=== PATIENT | male | born 1950 | race Caucasian/White ===

== ENCOUNTER 2021-04-08 07:17 | Outpatient (CLI) | payer OTHER, SELFPAY ==
[2021-04-08 07:49] LABS: Alanine Aminotransferase 15 U/L (4-50); Albumin Level 4.3 g/dL (3.5-5.1); Alkaline Phosphatase 70 U/L (38-126); Anion Gap 7 mmol/L (8-16); Aspartate Amino Transferase 29 U/L (17-59); Bilirubin,Total 1.3 mg/dL (0.2-1.3); Blood Urea Nitrogen 15 mg/dL (9-20); Calcium 9.9 mg/dL (8.4-10.2); Carbon Dioxide 27 mmol/L (22-30); Chloride 104 mmol/L (98-107); Cholesterol 186 mg/dL (0-200); Estimated Glomerular Filt Rate 50; Glucose 105 mg/dL (75-110); HDL Direct 58 mg/dL; Potassium 4.4 mmol/L (3.4-5.0); Sodium 138 mmol/L (137-145); Triglycerides 100 mg/dL (<150)
[2021-04-08 07:58] LABS: Basophils Absolute Auto 0.1 K/mm3 (0.0-0.1); Eosinophils Absolute Auto 0.3 K/mm3 (0-0.3); Eosinophils Percent Auto 5.1 % (0-4.4); Hematocrit 43.9 % (42.0-52.0); Hemoglobin 14.5 g/dL (14.0-18.0); Immature Granulocyte Absolute 0.02 K/mm3 (0.00-0.031); Immature Granulocyte Percent A 0.3 % (0-0.5); Lymphocytes Absolute Auto 1.58 K/mm3 (0.9-3.2); Lymphocytes Percent Auto 26.2 % (18.3-44.2); Mean Corpuscular Hemoglobin 30.8 pg (26-34); Mean Corpuscular Volume 93.2 fl (80-100); Mean Platelet Volume 8.7 fl (7.4-10.4); Monocytes Absolute Auto 0.8 K/mm3 (0.1-0.6); Monocytes Percent Auto 12.6 % (2.6-8.5); Neutrophils Absolute Auto 3.3 K/mm3 (1.3-6.7); Neutrophils Percent Auto 54.8 % (45.5-73.1); Platelet Count Result 264 k/mm3 (150-375); Red Blood Count 4.71 M/mm3 (4.6-6.20); Red Cell Distribution Width 13.5 % (11.5-14.5)
[2021-04-08 08:00] LABS: LDL Cholesterol Direct 87 mg/dL
== END 2021-04-08 07:18 | disposition home or self-care (01) ==
PROVIDERS: PCP Internal Medicine; Visit Provider Nurse Practitioner
DX: I10 Essential (primary) hypertension (principal); E78.1 Pure hyperglyceridemia
CPT/HCPCS: 36415; 80053; 80061; 85025

== ENCOUNTER 2021-06-09 08:47 | Outpatient (CLI) | payer OTHER, SELFPAY ==
[2021-06-09 09:33] LABS: Anion Gap 7 mmol/L (8-16); Blood Urea Nitrogen 15 mg/dL (9-20); Calcium 9.6 mg/dL (8.4-10.2); Carbon Dioxide 30 mmol/L (22-30); Chloride 94 mmol/L (98-107); Estimated Glomerular Filt Rate 54; Glucose 96 mg/dL (65-110); Potassium 4.5 mmol/L (3.4-5.0); Sodium 131 mmol/L (137-145)
== END 2021-06-09 08:48 | disposition home or self-care (01) ==
PROVIDERS: PCP Internal Medicine; Visit Provider Internal Medicine Cardiovascular Disease
DX: N28.9 Disorder of kidney and ureter, unspecified (principal)
CPT/HCPCS: 36415; 80048

== ENCOUNTER 2021-10-21 13:06 | Outpatient (CLI) | payer OTHER, SELFPAY ==
[2021-10-21 13:54] LABS: Anion Gap 8 mmol/L (8-16); Blood Urea Nitrogen 18 mg/dL (9-20); Calcium 9.2 mg/dL (8.4-10.2); Carbon Dioxide 30 mmol/L (22-30); Chloride 98 mmol/L (98-107); Estimated Glomerular Filt Rate 50; Glucose 124 mg/dL (65-110); Potassium 4.2 mmol/L (3.4-5.0); Sodium 136 mmol/L (137-145)
== END 2021-10-21 13:07 | disposition home or self-care (01) ==
LOC: ANHLAB 13:08
PROVIDERS: PCP Internal Medicine; Visit Provider Nurse Practitioner
DX: R94.4 Abnormal results of kidney function studies (principal)
CPT/HCPCS: 36415; 80048

== ENCOUNTER 2022-04-22 07:39 | Outpatient (CLI) | payer OTHER, SELFPAY ==
[2022-04-22 08:15] LABS: Basophils Percent Auto 0.6 % (0.2-1.2); Eosinophils Absolute Auto 0.1 K/mm3 (0-0.3); Eosinophils Percent Auto 2.4 % (0-4.4); Hematocrit 41.4 % (42.0-52.0); Hemoglobin 13.6 g/dL (14.0-18.0); Immature Granulocyte Absolute 0.03 K/mm3 (0.00-0.031); Immature Granulocyte Percent A 0.6 % (0-0.5); Lymphocytes Percent Auto 27.8 % (18.3-44.2); Mean Corpuscular HGB Conc 32.9 g/dl (32-36); Mean Corpuscular Hemoglobin 31.1 pg (26-34); Mean Corpuscular Volume 94.5 fl (80-100); Mean Platelet Volume 8.4 fl (7.4-10.4); Monocytes Absolute Auto 0.7 K/mm3 (0.1-0.6); Monocytes Percent Auto 12.8 % (2.6-8.5); Neutrophils Percent Auto 55.8 % (45.5-73.1); Platelet Count Result 232 k/mm3 (150-375); Red Blood Count 4.38 M/mm3 (4.6-6.20); White Blood Count 5.4 K/mm3 (4.5-10.0)
[2022-04-22 08:26] LABS: Alanine Aminotransferase 15 U/L (6-50); Albumin Level 4.1 g/dL (3.5-5.1); Alkaline Phosphatase 59 U/L (38-126); Anion Gap 8 mmol/L (8-16); Aspartate Amino Transferase 19 U/L (17-59); Bilirubin,Total 0.6 mg/dL (0.2-1.3); Blood Urea Nitrogen 17 mg/dL (9-20); Carbon Dioxide 25 mmol/L (22-30); Chloride 102 mmol/L (98-107); Cholesterol 170 mg/dL (0-200); Estimated Glomerular Filt Rate 60; Glucose 100 mg/dL (65-110); HDL Direct 50 mg/dL; Potassium 4.2 mmol/L (3.4-5.0); Sodium 135 mmol/L (137-145); Triglycerides 111 mg/dL (<150)
[2022-04-22 08:37] LABS: LDL Cholesterol Direct 81 mg/dL
[2022-04-22 08:57] LABS: Prostate Specific Antigen 0.2 ng/mL (< OR = 4.0)
== END 2022-04-22 07:40 | disposition home or self-care (01) ==
LOC: ANHLAB 07:40
PROVIDERS: PCP Internal Medicine; Visit Provider Nurse Practitioner
DX: Z12.5 Encounter for screening for malignant neoplasm of prostate (principal); Z13.220 Encounter for screening for lipoid disorders; Z13.29 Encounter for screening for other suspected endocrine disorder
CPT/HCPCS: 36415; 80053; 80061; 84153; 85025; G0103

== ENCOUNTER 2022-06-15 09:02 | Outpatient (CLI) | payer OTHER, SELFPAY ==
[2022-06-15 10:05] LABS: Alanine Aminotransferase 19 U/L (6-50); Albumin Level 4.4 g/dL (3.5-5.1); Alkaline Phosphatase 62 U/L (38-126); Anion Gap 8 mmol/L (8-16); Aspartate Amino Transferase 29 U/L (17-59); Bilirubin,Total 0.8 mg/dL (0.2-1.3); Blood Urea Nitrogen 18 mg/dL (9-20); Calcium 9.8 mg/dL (8.4-10.2); Carbon Dioxide 31 mmol/L (22-30); Chloride 94 mmol/L (98-107); Estimated Glomerular Filt Rate 60; Glucose 79 mg/dL (65-110); Potassium 4.4 mmol/L (3.4-5.0); Sodium 133 mmol/L (137-145)
== END 2022-06-15 09:03 | disposition home or self-care (01) ==
PROVIDERS: PCP Internal Medicine; Visit Provider Internal Medicine Cardiovascular Disease
DX: I42.8 Other cardiomyopathies (principal)
CPT/HCPCS: 36415; 80053

== ENCOUNTER 2022-07-23 08:21 | Outpatient (CLI) | payer OTHER, SELFPAY ==
[2022-07-23 08:47] LABS: Basophils Percent Auto 0.7 % (0.2-1.2); Eosinophils Absolute Auto 0.1 K/mm3 (0-0.3); Eosinophils Percent Auto 2.6 % (0-4.4); Hematocrit 44.1 % (42.0-52.0); Hemoglobin 14.9 g/dL (14.0-18.0); Immature Granulocyte Absolute 0.02 K/mm3 (0.00-0.031); Immature Granulocyte Percent A 0.4 % (0-0.5); Lymphocytes Absolute Auto 1.47 K/mm3 (0.9-3.2); Lymphocytes Percent Auto 27.1 % (18.3-44.2); Mean Corpuscular HGB Conc 33.8 g/dl (32-36); Mean Corpuscular Hemoglobin 31.8 pg (26-34); Mean Platelet Volume 8.3 fl (7.4-10.4); Monocytes Absolute Auto 0.6 K/mm3 (0.1-0.6); Monocytes Percent Auto 11.4 % (2.6-8.5); Neutrophils Absolute Auto 3.1 K/mm3 (1.3-6.7); Neutrophils Percent Auto 57.8 % (45.5-73.1); Platelet Count Result 245 k/mm3 (150-375); Red Blood Count 4.69 M/mm3 (4.6-6.20); Red Cell Distribution Width 13.7 % (11.5-14.5); White Blood Count 5.4 K/mm3 (4.5-10.0)
[2022-07-23 09:49] LABS: Iron 123 ug/dL (49-181)
[2022-07-23 09:58] LABS: Percent Iron Saturation 39 % (20-50)
[2022-07-23 10:07] LABS: Folic Acid 12.3 ng/mL (2.76->20)
== END 2022-07-23 08:22 | disposition home or self-care (01) ==
LOC: ANHLAB 08:22
PROVIDERS: PCP Internal Medicine; Visit Provider Nurse Practitioner
DX: D64.9 Anemia, unspecified (principal)
CPT/HCPCS: 36415; 82607; 82728; 82746; 83540; 83550; 85025

== ENCOUNTER 2023-04-22 08:58 | Outpatient (CLI) | payer OTHER, SELFPAY ==
[2023-04-22 09:23] LABS: Basophils Percent Auto 0.8 % (0.2-1.2); Eosinophils Absolute Auto 0.1 K/mm3 (0-0.3); Eosinophils Percent Auto 2.4 % (0-4.4); Hematocrit 43.4 % (42.0-52.0); Hemoglobin 14.5 g/dL (14.0-18.0); Immature Granulocyte Absolute 0.01 K/mm3 (0.00-0.031); Immature Granulocyte Percent A 0.2 % (0-0.5); Lymphocytes Percent Auto 32.3 % (18.3-44.2); Mean Corpuscular HGB Conc 33.4 g/dl (32-36); Mean Corpuscular Hemoglobin 31.3 pg (26-34); Mean Corpuscular Volume 93.5 fl (80-100); Mean Platelet Volume 8.6 fl (7.4-10.4); Monocytes Absolute Auto 0.7 K/mm3 (0.1-0.6); Monocytes Percent Auto 13.9 % (2.6-8.5); Neutrophils Absolute Auto 2.5 K/mm3 (1.3-6.7); Neutrophils Percent Auto 50.4 % (45.5-73.1); Platelet Count Result 223 k/mm3 (150-375); Red Blood Count 4.64 M/mm3 (4.6-6.20); Red Cell Distribution Width 13.9 % (11.5-14.5)
[2023-04-22 09:26] LABS: Alanine Aminotransferase 19 U/L (6-50); Albumin Level 4.2 g/dL (3.5-5.1); Alkaline Phosphatase 62 U/L (38-126); Anion Gap 5 mmol/L (8-16); Aspartate Amino Transferase 28 U/L (17-59); Bilirubin,Total 1.2 mg/dL (0.2-1.3); Blood Urea Nitrogen 22 mg/dL (9-20); Carbon Dioxide 27 mmol/L (22-30); Chloride 103 mmol/L (98-107); Cholesterol 183 mg/dL (0-200); Estimated Glomerular Filt Rate 54; Glucose 92 mg/dL (65-110); HDL Direct 56 mg/dL; Potassium 4.3 mmol/L (3.4-5.0); Sodium 135 mmol/L (137-145); Triglycerides 63 mg/dL (<150)
[2023-04-22 09:37] LABS: LDL Cholesterol Direct 101 mg/dL
[2023-04-22 09:55] LABS: Prostate Specific Antigen 0.2 ng/mL (< OR = 4.0)
== END 2023-04-22 08:59 | disposition home or self-care (01) ==
LOC: ANHLAB 08:59
PROVIDERS: PCP Internal Medicine; Visit Provider Nurse Practitioner
DX: Z12.5 Encounter for screening for malignant neoplasm of prostate (principal); Z13.220 Encounter for screening for lipoid disorders; Z13.29 Encounter for screening for other suspected endocrine disorder
CPT/HCPCS: 36415; 80053; 80061; 84153; 85025; G0103

== ENCOUNTER 2024-05-04 07:03 | Outpatient (CLI) | payer OTHER, SELFPAY ==
[2024-05-04 07:30] LABS: Alanine Aminotransferase 17 U/L (6-50); Albumin Level 4.7 g/dL (3.5-5.1); Alkaline Phosphatase 63 U/L (38-126); Anion Gap 10 mmol/L (4-12); Aspartate Amino Transferase 24 U/L (17-59); Basophils Absolute Auto 0.1 K/mm3 (0.0-0.1); Basophils Percent Auto 1.1 % (0.2-1.2); Bilirubin,Total 1.2 mg/dL (0.2-1.3); Blood Urea Nitrogen 19 mg/dL (9-20); Calcium 9.5 mg/dL (8.4-10.2); Carbon Dioxide 26 mmol/L (22-30); Chloride 100 mmol/L (98-107); Cholesterol 187 mg/dL (0-200); Eosinophils Absolute Auto 0.2 K/mm3 (0-0.3); Eosinophils Percent Auto 3.6 % (0-4.4); Estimated Glomerular Filt Rate > 60; Glucose 99 mg/dL (65-110); HDL Direct 62 mg/dL; Hemoglobin 14.3 g/dL (14.0-18.0); Immature Granulocyte Absolute 0.01 K/mm3 (0.00-0.031); Immature Granulocyte Percent A 0.2 % (0-0.5); Lymphocytes Percent Auto 38.2 % (18.3-44.2); Mean Corpuscular HGB Conc 33.3 g/dl (32-36); Mean Corpuscular Hemoglobin 31.5 pg (26-34); Mean Corpuscular Volume 94.7 fl (80-100); Mean Platelet Volume 8.1 fl (7.4-10.4); Monocytes Absolute Auto 0.7 K/mm3 (0.1-0.6); Monocytes Percent Auto 14.6 % (2.6-8.5); Neutrophils Absolute Auto 1.9 K/mm3 (1.3-6.7); Neutrophils Percent Auto 42.3 % (45.5-73.1); Platelet Count Result 237 k/mm3 (150-375); Potassium 4.2 mmol/L (3.4-5.0); Red Blood Count 4.54 M/mm3 (4.6-6.20); Red Cell Distribution Width 14.2 % (11.5-14.5); Sodium 136 mmol/L (137-145); Triglycerides 86 mg/dL (<150); White Blood Count 4.5 K/mm3 (4.5-10.0)
[2024-05-04 07:40] LABS: LDL Cholesterol Direct 105 mg/dL
[2024-05-04 07:57] LABS: Prostate Specific Antigen 0.2 ng/mL (< OR = 4.0)
== END 2024-05-04 07:04 | disposition home or self-care (01) ==
LOC: ANHLAB 07:04
PROVIDERS: PCP Internal Medicine; Visit Provider Nurse Practitioner
DX: Z13.220 Encounter for screening for lipoid disorders (principal); Z13.29 Encounter for screening for other suspected endocrine disorder; Z12.5 Encounter for screening for malignant neoplasm of prostate
CPT/HCPCS: 36415; 80053; 80061; 84153; 85025; G0103

== ENCOUNTER 2025-04-30 06:28 | Emergency (ER) | payer OTHER, SELFPAY ==
[2025-04-30] VITALS (7 sets, daily range): BP systolic 86–118; BP diastolic 53–74; PULSE 77–87; RESP 15–24; TEMP 36.4–36.6; O2SAT 99–100
--- NOTE | ~2025-04-30 | XR_ITS ---
Clinical Indication: Shortness of breath PA and lateral views of the chest: Comparison: 02/06/2017 Findings: Possible COPD with stable calcified left basilar granuloma. The lungs are otherwise clear, without evidence of focal consolidation or pleural effusion. Calcified left hilar lymph nodes are aga in present. Cardiomediastinal silhouette is within normal limits. Bones and soft tissues are unremark able. Impression: Possible COPD. No other acute abnormality seen. Reviewed, dictated and finalized at location M. Impression: Possible COPD. No other acute abnormality seen.
--- OUTSIDE RECORDS SUMMARY | 2025-04-30 06:30 | XMS_ITS | Encounter Summary ---
Author Organization [facility] Healthcare Address [address] [place] [address] Care Team Providers Care Professor Of Astronomy Name Role Phone Jorge Agustin DO Primary Care Provider [phone] Ricardo Clarke DO Unavailable [phone] Iban Armenta MD Unavailable [phone] Encounter Details Date Type Department Care Team (Late st Contact Info) Description 04/22/2025 Results Follow-Up [facility] Convenient Care at [address] [address] Britta Johnston, PIZZAMAKER [address] [place] [address] [address] [place] [address] XR Shoulder Left 2+ Vw Social History Tobacco Use Types Packs/Day Years Used Date Smoking Tobacco: Former Cigarettes Q uit: 03/20/2004 Smokeless Tobacco: Never Comments:Smoking History Pac ks/day: 1.5 Packs Alcohol Use Standard Drinks/Week Comments Yes 0 (1 standard drink = 0.6 oz pur e alcohol) AUDIT-C Answer Date Recorded Q1: How often do you have a drink containing alcohol? Never 03/25/2025 Q2: How many drinks containi ng alcohol do you have on a typical day when you are drinking? Patient does not drink Q3: How often do you have si x or more drinks on one occasion? Never 03/25/2025 Personal Safety Answer Date Recorded Have you ever been in or are you currently in a harmful physical or emotional relationship or is someone making you feel afraid or unsafe? 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 * Result Encounter Note - Makeda Collier MA - 04/25/2025 12:20 PM CDT Lvm for call back regarding results. documented in this encounter Plan of Treatment Not on file documented as of this encounter Visit Diagnoses Not on filedocumented in this encounter Care Teams Professor Of Astronomy Relationship Specialty Start Date End Date Jorge Agustin DO PCP - General Internal Medicine 06/08/17 Ricardo Clarke DO Consulting Physician Gastroenterology 08/27/19 Iban Armenta MD [address] [place] [address] [place] [address] Surgeon Orthopedic Surgery 04/01/25 documented as of this encounter
--- OUTSIDE RECORDS SUMMARY | 2025-04-30 06:30 | XMS_ITS | Encounter Summary ---
Author Organization [facility] Address [address] [facility] [address] [place] [address] Care Team Providers Care Channel Marketing Coordinator Name Role Phone Prasad Bose MD Primary Care Provider [phone] Jorge Agustin DO Primary Care Provider [phone] Ricardo Clarke DO Unavailable [phone] Iban Armenta MD Unavailable [phone] Encounter Details Date Type Department Care Team (Late st Contact Info) Description 01/27/2017 Orders Only [facility] ProviderCasi MD [address] [place] [address] Social History Tobacco Use Types Packs/Day Years Used Date Smoking Tobacco: Never Assessed Sex and Gender Information Value Date Recorded Sex Assigned at Not on file 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 Historical Provider [facility] Final Result documented in this encounter Visit Diagnoses Not on filedocumented in this encounter Additional Health Concerns Infection Onset Date Last Indicated Resolved Time COVID: Suspected 01/05/2023 01/05/2023 01/05/2023 8:38 AM CDT COVID: Suspected 06/24/2023 06/24/2023 06/25/2023 1:10 AM CDT COVID19 06/24/2023 06/24/2023 07/04/2023 3:06 AM CDT COVID: Recovered Comment:Added based on recent COVID infection. 07/04/2023 08/17/2023 10/02/2023 3:[address] documented as of this encounter Care Teams Channel Marketing Coordinator Relationship Specialty Start Date End Date Prasad Bose MD PCP - General 01/24/17 06/07/17 Jorge Agustin DO PCP - General Internal Medicine 06/08/17 Ricardo Clarke DO Consulting Physician Gastroenterology 08/27/19 Iban Armenta MD [address] [facility] [address] [place] [id number] Surgeon Orthopedic Surgery 04/01/25 documented as of this encounter
--- OUTSIDE RECORDS SUMMARY | 2025-04-30 06:30 | XMS_ITS | Encounter Summary ---
Author Organization [facility] Healthcare Address [address] [place] [address] Care Team Providers Care Coverer Name Role Phone Jorge Augstin DO Primary Care Provider [phone] Ricardo Clarke DO Unavailable [phone] Iban Armenta MD Unavailable [phone] Reason for Visit * Reason Comments Pain Encounter Details Date Type Department Care Team (Late st Contact Info) Description 04/29/2025 1:30 PM CDT Office Visit [facility] Medical [facility] Orthopedic and Sports Medicine [address] [place] [id number] Olya Winkler PA [address] [place] [address] [address] [place] [address] Acute pain of left shoulder (Primary Dx) Social History Tobacco Use Types Packs/Day Years [...] on file 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 Gender Identity Not on file Sexual Orientation Not on file documented as of this encounter Last Filed Vital Signs Vital Sign Reading Time Taken Comments Blood Pressure 105/70 04/29/2025 1:24 PM CDT Pulse 80 04/29/2025 1:24 PM CDT Temperature - - Respiratory Rate - - Oxygen Saturation - - Inhaled Oxygen Concentration - - Weight 61.2 kg (135 lb) 04/29/2025 1:24 PM CDT Height 177.8 cm (5' 10) 04/29/2025 1:24 PM CDT Body Mass Index 19.37 04/29/2025 1:24 PM CDT documented in this encounter Plan of Treatment Not on file documented as of this encounter Visit Diagnoses Diagnosis Acute pain of left shoulder- Primary documented in this encounter Care Teams Coverer Relationship Specialty Start Date End Date Jorge Agustin DO PCP - General Internal Medicine 06/08/17 Ricardo Clarke DO Consulting Physician Gastroenterology 08/27/19 Iban Armenta MD [address] [facility] [address] [place] [address] Surgeon Orthopedic Surgery 04/01/25 documented as of this encounter
--- OUTSIDE RECORDS SUMMARY | 2025-04-30 06:30 | XMS_ITS | Clinical Summary ---
Author Organization [facility] [address] Address [address] [place] [address] Care Team Providers Care Joss House Keeper Name Role Phone Jorge Agustin DO Primary Care Provider [phone] Ricardo Clarke DO Unavailable [phone] Iban Armenta MD Unavailable [phone] Allergies No known active allergies Medications sildenafiL (VIAGRA) 25 mg tablet Take 1 tablet (25 mg total) by mouth daily as needed for erectile dysfunction Active Xarelto 20 mg tablet TAKE 1 TABLET(20 MG) BY MOUTH DAILY 90 tablet 6 025 Active flecainide (TAMBOCOR) 100 mg tablet Take 1 tablet (100 mg total) by mouth 2 (two) times a day 180 tablet 2 025 Active losartan (COZAAR) 100 mg tabletIndications :Essential hypertension TAKE 1 TABLET(100 MG) BY MOUTH DAILY 90 tablet 3 025 Active ascorbic acid (VITAMIN C) 500 mg tablet,chewableIn dications:Vitamin deficiency prevention Take 1 tablet/chew tab (500 mg total) by mouth daily 30 tablet/chew tab 025 2024 Active ferrous sulfate 325 mg (65 mg of elemental iron) tabletIndications :Iron Deficiency Anemia,Anemia prevention Take 1 tablet (325 mg total) by mouth daily with breakfast 30 tablet 025 2025 Active Additional Information Patient not taking.Reported on 04/22/2025 ondansetron ODT (ZOFRAN-ODT) 4 mg disintegrating tabletIndications :nausea and vomiting Take 1 tablet (4 mg total) by mouth every 6 (six) hours as needed for nausea or vomiting 20 tablet 2 Active Additional Information Patient not taking.Reported on 04/22/2025 senna-docusate (PERICOLACE) 8.6-50 mgIndications:con stipation Take 2 tablets by mouth 2 (two) times a day 60 tablet 2 Active traMADoL (ULTRAM) 50 mg tablet Take 1 tablet (50 mg total) by mouth every 6 (six) hours as needed for pain Take 1-2 tablets every 4-6 hours as needed for pain. 30 tablet Active amLODIPine (NORVASC) 10 mg tablet Take 0.5 tablets (5 mg total) by mouth daily 025 2025 Active carvediloL (COREG) 6.25 mg tablet TAKE 1 TABLET(6.25 MG) BY MOUTH TWICE DAILY WITH MEALS 180 tablet 3 Active carvediloL (COREG) 6.25 mg tablet Take 1 tablet (6.25 mg total) by mouth 2 (two) times a day with meals 180 tablet 025 2024 Discontinued amLODIPine (NORVASC) 10 mg tablet Take 1 tablet (10 mg total) by mouth daily 30 tablet 11 025 2024 Discontinued acetaminophen (TYLENOL) 500 mg tablet Take 1 tablet (500 mg total) by mouth every 6 (six) hours as needed for pain 2024 Discontinued(S top Taking at Discharge) oxyCODONE-acetami nophen (PERCOCET) 5-325 mg per tabletIndications :Pain Take 1-2 tablets by mouth every 4 (four) hours as needed for pain 40 tablet 025 2024 Discontinued(A lternate therapy) traMADoL (ULTRAM) 50 mg tablet Take 1 tablet (50 mg total) by mouth every 6 (six) hours as needed for pain Take 1-2 tablets every 4-6 hours as needed for pain. 30 tablet 025 2024 Discontinued(R eorder) Active Problems Problem Noted Date Diagnosed Date Primary osteoarthritis of right knee 03/20/2025 Arthritis of right knee 11/19/2024 Encounters Date Type Department Care Team Description 04/29/2025 1:30 PM CDT Office Visit [facility] Medical [facility] Orthopedic and Sports Medicine [address] [place] [address] Olya Winkler PA Acute pain of left shoulder (Primary Dx) 04/22/2025 2:35 PM CDT Ancillary Procedure [facility] Imaging at [address] [address] Acute pain of left shoulder 04/22/2025 2:15 PM CDT Office Visit [facility] at [address] [address] Britta Johnston NP Acute pain of left shoulder (Primary Dx) 04/22/2025 Results Follow-Up [facility] at [address] [address] Britta Johnston NP XR Shoulder Left 2+ Vw 04/17/2025 2:00 PM CDT Office Visit [facility] Cardiology [address] [place] [address] Jessica Dubose NP Labile hypertension; Paroxysmal atrial fibrillation (HCC); Lipid screening 04/17/2025 11:00 AM CDT Telemedicine [facility] Orthopedics and Sports Medicine [address] [place] [address] [address] [place] [phone] Ping Friedman NP Aftercare following right knee joint replacement surgery (Primary Dx) 04/03/2025 Telephone [facility] Orthopedics and Sports Medicine [address] [facility] [address] [place] [address] Iban Armenta MD Post-op Problem 03/31/2025 11:25 AM CDT - 03/31/2025 1:55 PM CDT Surgery [facility] Operating Room [address] [place] [address] Iban Armenta MD Right Total Knee Arthroplasty- Robotic, 03/31/2025 10:20 AM CDT Anesthesia Event [facility] Operating Room 1 [place] [address] Yaniv Chandler DO Reynolds, Stefano Wagner MD 03/31/2025 8:41 AM CDT - 04/01/2025 2:07 PM CDT Hospital Encounter [facility] Surgery Care [address] [place] [address] Iban Armenta MD Primary osteoarthritis of right knee Discharge Disposition: Discharge to home or self care 03/28/2025 Documentation [facility] Medical [facility] Orthopedics and Sports Medicine [address] [facility] [address] [place] [address] Ifrah Padilla MA Surgical Clearance 03/06/2025 9:30 AM CDT Office Visit [facility] Cardiology [address] [facility] [address] [place] [address] Jessica Dubose NP Pre-operative exam (Primary Dx); Chronic anticoagulation 03/04/2025 7:25 AM CDT - 03/04/2025 11:59 PM CDT Hospital Encounter [facility] Cardiology 1 [place] [address] Pre-operative exam Discharge Disposition: Discharge to home or self care 03/04/2025 7:25 AM CDT Lab [address] [address] Pre-operative exam 02/25/2025 Telephone [facility] Cardiology [address] [place] [address] [address] [place] [address] Gil Loza MD 02/07/2025 Telephone [facility] Orthopedics and Sports Medicine [address] [place] [address] [address] [place] [address] Iban Armenta MD 02/07/2025 Telephone [facility] Cardiology [address] [facility] [address] [place] [address] Jessica Dubose NP 02/05/2025 3:10 PM CDT Office Visit [facility] Cardiology [address] [facility] [address] [place] [address] Essential hypertension (Primary Dx) 02/05/2025 Telephone [facility] Orthopedics and Sports Medicine [address] [place] [address] Iban Armenta MD 01/30/2025 Telephone [facility] Medical Group Cardiology [address] [place] [address] Adelaida Sevilla MA 01/29/2025 Telephone [facility] Medical Group Orthopedics and Sports Medicine [address] [facility] [address] [place] [address] Iban Armenta MD from Last 3 Months Immunizations Immunization Administration Dates Next Due Influenza, Quadrivalent, Hig h Dose, Preservative Free, Intrr 08/09/2020 Influenza, Trivalent, High D ose, Split, Preservative Free, Intramuscular 10/21/2018,09/09/2017 Pneumococcal Conjugate PCV 13 09/19/2017 ZOSTER LIVE 09/19/2017 Surgical History Surgery Date Site/Laterality Comments HIP ARTHROPLASTY Left Hip arthroplasty left x 2 EYE SURGERY Bilateral macular hole CATARACT EXTRACTION Bilateral Medical History Medical History Date Comments Hx Other Medical Emphysema; Comm ents: [facility] 12/04/2014 - Hx Other Medical Neuropathy- fee t; Comments: [facility] 12/04/2014 - Anemia Anemia; Comments : [facility] 12/04/2014 - Hepatitis C virus infection Hepa titis C; Comments: [facility] 12/04/2014 - patient states he has taken the medication Hx Other Medical 2006 Left hip revisi on; Comments: [facility] 12/04/2014 - Hypertension Cardiomyopathy (HCC) Arrhythmia Atrial Fibrillat ion COPD (chronic obstructive pu lmonary disease) (HCC) Asthma Palpitations Family History Medical History Relation Name Comments Heart disease Other 1 Family history of Heart problems; Arthritis Other 2 Family history of Arthritis; Diabetes type II Other 3 Family hist ory of Diabetes mellitus type 2; Gout Other 4 Family history of Gout; Hypertension Other 5 Family history of Hypertension; Stroke Other 6 Family history of Stroke; Relation Name Status Comments Other 1 Other 2 Other 3 Other 4 Other 5 Other 6 Social History Tobacco Use Types Packs/Day Years Used Date Smoking Tobacco: Former Cigarettes Q uit: 03/20/2004 Smokeless Tobacco: Never Tobacco Cessation:Counseling Given: Not Answered Comments:Smoking History Packs/day: 1.5 Packs Alcohol Use Standard Drinks/Week Comments [...] on file Legal 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[employer] Gender Identity Not on file Sexual Orientation Not on file Obstetrics History Last Filed Vital Signs Vital Sign Reading Time Taken Comments Blood Pressure 105/70 04/29/2025 1:24 PM CDT Pulse 80 04/29/2025 1:24 PM CDT Temperature 36.8 C (98.3 F) 04/22/2025 2:14 PM CDT Respiratory Rate 16 04/22/2025 2:14 PM CDT Oxygen Saturation 98% 04/22/2025 2:14 PM CDT Inhaled Oxygen Concentration - - Weight 61.2 kg (135 lb) 04/29/2025 1:24 PM CDT Height 177.8 cm (5' 10) 04/29/2025 1:24 PM CDT Body Mass Index 19.37 04/29/2025 1:24 PM CDT Plan of Treatment Health Maintenance Due Date Last Done Comments Colon Cancer Screening-Colonoscopy 1950 Depression Screening 1950 DTaP/Tdap/Td Vaccine (1 - Tdap) 1961 Hepatitis B Screening 1968 Well Visit 65+ 2015 Pneumococcal vaccine 65+ (2 of 2 - PPSV23) 11/14/2017 09/19/2017 Zoster Vaccine (2 of 3) 11/14/2017 09/19/2017 Covid-19 Vaccine (3 - 2023-2 5 season) 2024 01/27/2021, 12/30/2020 Influenza Vaccine (#1) 2025 , 10/21/2018, 09/09/2017 Fall Risk Assessment 04/01/2026 04/01/2025 Abdominal Aortic Aneurysm (A AA) Screen Completed 12/09/2016 Hepatitis C Screening Completed 06/21/2023 , 06/15/2022, 06/09/2021, Additional history exists Medical Devices Implanted Type Area Business Excellence Manager Device Identifier Shelf Expiration Date Model / Serial / Lot [employer] Tibial Baseplate Knee Porous Fixed Attune Affixium Size 6 Titanium [id number] - [id number] Implanted:Qty: 1 on 03/31/2025 by Iban Armenta MD at [facility] Right: Knee [employer] [id number] 02/19/2034 [id number] / / [id number] [employer] Attune Cruciate Retain Cementless Knee Right 6 Component Femoral [id number] - [id number] Implanted:Qty: 1 on 03/31/2025 by Iban Armenta MD at [facility] Right: Knee [employer] [id number] 12/20/2034 [id number] / / [id number] [employer] Insert Tibial Attune Right Medial Stabilized Sz 6 6mm Fixed Bearing Polyethylene [id number] - [id number] Implanted:Qty: 1 on 03/31/2025 by Iban Armenta MD at [facility] Right: Knee [employer] [id number] 12/20/2032 [id number] / / [id number] Procedures Procedure Name Priority Date/Time Associated Diagnosis Comments XR SHOULDER LEFT 2 OR MORE VIEWS Schedule NICK, Read NICK (Appt Today, Awaiting Results) 04/22/2025 3:09 PM CDT Acute pain of left shoulder POCT LIPID PANEL Routine 04/17/2025 2:02 PM CDT Lipid screening EGFR Routine 04/01/2025 4:22 AM CDT CBC WITHOUT DIFFERENTIAL Routine 04/01/2025 4:22 AM CDT BASIC METABOLIC PANEL Routine 04/01/2025 4:22 AM CDT ECG 12-LEAD STAT 03/31/2025 6:19 PM CDT POCT GLUCOSE DEVICE Routine 03/31/2025 6 :04 PM CDT SURGICAL PATHOLOGY Routine 03/31/2025 1: 47 PM CDT Primary osteoarthritis of right knee XR KNEE RIGHT 1 OR 2 VIEWS IP Routine 03/31/2025 12:50 PM CDT ANESTHESIA SPINAL BLOCK Routine 03/31/2025 10:44 AM CDT ARTHROPLASTY TOTAL KNEE 03/31/2025 10:00 AM CDT Primary osteoarthritis of right knee Special Needs - Robotic, Depuy- Attune , Velys, Cooling Unit-[facility] Care, 1 Liter Beta Rinse, Pt to Stay APTT STAT 03/31/2025 9:29 AM CDT PROTIME-INR STAT 03/31/2025 9:29 AM CDT ECG 12-LEAD Routine 03/04/2025 8:03 AM CDT Pre-operative exam EGFR Routine 03/04/2025 7:42 AM CDT Pre-operative exam URINALYSIS, MICROSCOPIC ONLY Routine 03/04/2025 7:42 AM CDT Pre-operative exam DIFFERENTIAL AUTO Routine 03/04/2025 7:4 2 AM CDT Pre-operative exam CBC WITH AUTO DIFFERENTIAL Routine 03/04/2025 7:42 AM CDT Pre-operative exam COMPREHENSIVE METABOLIC PANEL Routine 03/04/2025 7:42 AM CDT Pre-operative exam HEMOGLOBIN A1C Routine 03/04/2025 7:42 AM CDT Pre-operative exam URINALYSIS AND REFLEX TO MICROSCOPIC AND CULTURE Routine 03/04/2025 7:42 AM CDT Pre-operative exam from Last 3 Months Results * XR Shoulder Left 2+ Vw (04/22/2025 3:09 PM CDT) Anatomical Region Laterality Modality Upper Extremities, Shoulder Left Digi julia Radiography 04/22/2025 6:27 PM CDT Narrative 04/22/2025 6:29 PM CDT EXAM DESCRIPTION: XR SHOULDER LEFT 2 OR MORE VIEWS REASON FOR STUDY: shoulder pain, left, significant difficulty moving this am. no falls or trauma Pt complains of left shoulder pain x 1 day. No known injury or prior surgery TECHNIQUE: 4 radiographic view(s) of the left shoulder . COMPARISON: None available FINDINGS: The alignment is normal. There has no fracture. The glenohumeral joint space is normal. Mild acromioclavicular joint osteoarthritis. No aggressive osseous lesions. Mild osteopenia. Mineralized bodies measuring up to 3 mm projecting adjacent to the inferior margin of the glenoid which either reflect joint bodies, sequela of prior injury, or conceivably calcific tendinosis of long head triceps tendon. Calcified hilar lymph nodes due to old healed granulomatous disease. Scattered regions of bilateral pulmonary parenchymal scarring are present but incompletely evaluated. IMPRESSION: No acute osseous abnormality. Mild left acromioclavicular joint osteoarthritis. THIS IS AN ELECTRONICALLY VERIFIED FINAL REPORT 04/22/2025 6:29 PM - Electronically signed by Catherine Cooper M.D. AT T: Report ID: [id number] Reading Location: [id number] Procedure Note Catherine Cooper MD - 04/22/2025 EXAM DESCRIPTION: XR SHOULDER LEFT 2 OR MORE VIEWS REASON FOR STUDY: shoulder pain, left, significant difficulty moving thisam. no falls or trauma Pt complains of left shoulder pain x 1 day. No known injury or priorsurgery TECHNIQUE: 4 radiographic view(s) of the left shoulder . COMPARISON: None available FINDINGS: The alignment is normal. There has no fracture. Theglenohumeral joint space is normal. Mild acromioclavicular joint osteoarthritis. No aggressive osseous lesions. Mild osteopenia. Mineralized bodiesmeasuring up to 3 mm projecting adjacent to the inferior margin of the glenoid whicheither reflect joint bodies, sequela of prior injury, or conceivably calcific tendinosis of long head triceps tendon. Calcified hilar lymph nodes due to old healed granulomatous disease. Scattered regions of bilateral pulmonary parenchymal scarring are presentbut incompletely evaluated. IMPRESSION: No acute osseous abnormality. Mild left acromioclavicularjoint osteoarthritis. THIS IS AN ELECTRONICALLY VERIFIED FINAL REPORT 04/22/2025 6:29 PM - Electronically signed by Catherine Cooper M.D. AT T: Report ID: [id number] Reading Location: [id number] Britta Johnston NP IMG XR PROCEDURES Final Re sult * (ABNORMAL) POCT lipid panel (04/17/2025 2:02 PM CDT) Cholesterol, POC 148 <200 MG/DL HDL, POC 32(A) >=40 mg/dL Triglycerides, POC 90 <=149 mg/dL LDL Cholesterol POC 98 <=129 mg/dL Chol/HDL Ratio, POC 3.1 NONE Non-HDL Cholesterol, POC 116 NONE mg/dL Cholesterol Total, POC 148 30 - 199 mg/dL Capillary blood 04/17/2025 2 :02 PM CDT Jessica Dubose NP POINT OF CARE TEST ORDERA BLES Final Result * eGFR (04/01/2025 4:22 AM CDT) eGFR 75 >=60 mL/min/1. 73 m2 Comment: Interpretive Data Reference Interval Normal >/= 90 mL/min/1.73m2 Mildly decreased* 60 - 89 mL/min/1.73m2 Mildly to moderately decreased 45 - 59 mL/min/1.73m2 Moderately to severely decreased 30 - 44 mL/min/1.73m2 Severely decreased 15 - 29 mL/min/1.73m2 Kidney Failure < 15 mL/min/1.73m2 *Relative to young adult level Estimated glomerular filtration rate is determined by the 2020 CKD-EPI equation recommended by the National Kidney Foundation (A Unifying Approach to GFR Estimation: Recommendations of the NKF-ASK Task Force on Reassessing the Inclusion of Race in Diagnosing Kidney Disease, JASN 2020). The CKD-EPI equation should not be used for patients with unstable renal function and has not been validated in children and those over 70. Current interpretive data was last reviewed 2021. Blood 04/01/2025 4:22 AM CDT 04/01/2025 5:55 AM CDT us Sharifa GONCALVES LAB BLOOD ORDERABLES Final Result [facility] [address] [facility] [place] [address] * (ABNORMAL) CBC without differential (04/01/2025 4:22 AM CDT) WBC 6.91 3.80 - 9.90 K/cumm Hgb 11.0(L) 13.0 - 17.5 g/dL [facility] Hct 33.7(L) 38.9 - 50.3 % [facility] Plt 214 150 - 400 K/cumm [facility] MPV 9.1 9.1 - 12.3 fL [facility] RBC 3.55(L) 4.30 - 5.80 M/cumm [facility] MCV 94.9 81.3 - 96.4 fL [facility] MCH 31.0 27.1 - 33.3 pg [facility] MCHC 32.6 32.3 - 35.7 g/dL [facility] RDW CV 14.9 11.1 - 14.9 % [facility] RDW SD 52.3(H) 35.7 - 48.1 fL [facility] NRBC abs 0.00 0.00 - 0.01 K/cumm [facility] Blood 04/01/2025 4:22 AM CDT 04/01/2025 5:55 AM CDT Sharifa GONCALVES LAB BLOOD ORDERABLES Final Result [facility] [address] [facility] [place] [address] * Basic metabolic panel (04/01/2025 4:22 AM CDT) Sodium 138 135 - 145 mmol/L Potassium, pl 4.1 3.3 - 4.9 mmol/L [facility] Chloride 103 97 - 110 mmol/L [facility] CO2 22 22 - 32 mmol/L [facility] Anion gap 13 2 - 15 mmol/L [facility] BUN 18 6 - 25 mg/dL [facility] Creatinine 1.04 0.80 - 1.30 mg/dL [facility] Glucose 127 70 - 199 mg/dL [facility] Comment: Interpretive Data Fasting glucose >/= 126 mg/dl is diagnostic for diabetes. Fasting is defined as no caloric intake for at least 8 hours. Fasting glucose between 100 mg/dl to 125 mg/dl is diagnostic of prediabetes. In a patient with classic symptoms of hyperglycemia or hyperglycemic crisis, a random glucose >/= 200 mg/dl is diagnostic for diabetes. In the absence of unequivocal hyperglycemia, results should be confirmed by repeat testing. The classification and Diagnosis of Diabetes Diabetes Care 2021; 46: S19-S40. Current interpretive data was last revised 2022. Calcium 8.5 8.5 - 10.3 mg/dL [facility] Blood 04/01/2025 4:22 AM CDT 04/01/2025 5:55 AM CDT Sharifa GONCALVES LAB BLOOD ORDERABLES Final Result [facility] [address] [facility] [place] [address] * ECG 12 lead (03/31/2025 6:19 PM CDT) 03/31/2025 6:19 PM CDT Narrative [facility] - 04/01/2025 1:20 PM CDT Vent Rate: 99 bpm RR Interval: 604 msec VT Interval: 0 msec QRS Duration: 190 msec QT Interval: 453 msec QTC Interval: 509 msec P-R-T [place]: 47784 - -10 - 87 degrees IMPRESSION: ATRIAL FIBRILLATION WITH ABERRANT CONDUCTION OR VENTRICULAR PREMATURE COMPLEXES LEFT BUNDLE BRANCH BLOCK [120+ ms QRS DURATION, 80+ ms Q/S IN V1/V2, 85+ ms R IN I/aVL/V5/V6] ABNORMAL ECG Compared to prior EKG atrial fibrillation has replaced sinus rhythm Electronically Signed By: Esa Salinas MD [facility] us Iban Armenta MD ECG ORDERABLES Final Re sult [facility] * POCT glucose (03/31/2025 6:04 PM CDT) Glucose, POC 156 70 - 199 mg/dL Blood 03/31/2025 6:04 PM CDT 03/31/2025 6:04 PM CDT us Iban Armenta MD LAB POCT ORDERABLES - DE VICE Final Result [facility] [address] [place] [address] [place] [address] * Surgical pathology (03/31/2025 1:47 PM CDT) Tissue (Bone Fragment(s),) 03/31/2025 11:16 AM CDT Narrative PATHOLOGY [facility] - 04/02/2025 1:38 PM CDT EPIC results best viewed via link to PDF [facility] Department of Pathology [address] [place] [id number] Note to Patients: This report may contain a detailed description of human tissue sent by a health care provider to the laboratory for pathologic evaluation. The content of this report is essential for diagnosis and may provide important critical findings. This information may be unfamiliar to patients to review without a medical professional present. It is advised that the patient review this report in the presence of a health care provider who can answer questions and explain the details. Final Report Patient Name: BERNARDA GOODSON Address: [address] [place] [address] Gender: M : 1950 (Age: 75) Service: Surgery Location: [facility] Hospital #: [id number] Patient Type: [facility] OP in bed Taken: 03/31/2025 Received: 03/31/2025 Accessioned: 03/31/2025 Reported: 04/02/2025 Physician(s):Dr. Iban Armenta M.D. Diagnosis: Right knee, arthroplasty: - Degenerative joint disease consistent with osteoarthritis. Rodrigue Stratton M.D. Report Electronically Reviewed and Signed Out By Rodrigue Stratton M.D. 04/02/2025 13:38:57 Specimen(s) Received: A: Right knee bone tissue and fragments Microscopic Description: Sections show fragments of benign bone and cartilage. The overlying articular cartilaginous surface shows degenerative features including areas of erosion with fissures and clefting. The underlying medullary space shows some focal medullary fibrosis. No significant inflammatory infiltrate is seen. There is no evidence of malignancy. Sections from the soft tissue shows benign fibroconnective tissue with reactive synovium. Clinical History: Osteoarthritis of right knee. Right total knee arthroplasty - robotic. Gross Description: The container is labeled BERNARDA GOODSON and right knee. It is a 7 x 7 x 3 cm in aggregate of irregularly-shaped fragments of bone and an approximate 10 cc aggregate of soft tissue consisting of adipose tissue, portions of menisci and some synovium. Recognizable pieces of bone include the tibial plateau and portions of femoral condyles. Some of the bone fragments are covered by articular cartilage showing varying degrees of degenerative changes that include eburnation, pitting and roughened granularity. Decalcified and represented in two cassettes. Johann Daugherty R.N., P.A./David Huffman M.D. REPORT IMAGES AND SCANNED DOCUMENTS, IF INCLUDED, ONLY VIEWABLE IN PDF VERSION OF REPORT The performance characteristics of some immunohistochemical stains, fluorescence in-situ hybridization tests and immunophenotyping by flow cytometry cited in this report (if any) were determined by the Surgical Pathology Department at [facility] as part of an ongoing automotive quality engineer program and in compliance with federally mandated regulations drawn from the Clinical Laboratory Improvement Act of 1988 (CLIA '88). Some of these tests rely on the use of analyte specific reagents and are subject to specific labeling requirements by the US Food and Drug Administration. Such diagnostic tests may only be performed in a facility that is certified by the Department of Health and Human Services as a high complexity laboratory under CLIA '88. The FDA has determined that such clearance or approval is not necessary. This test is used for clinical purposes. It should not be regarded as investigational or for research. Nevertheless, federal rules concerning the medical use of analyte specific reagents require that the following disclaimer be attached to the report: This test was developed and its performance characteristics determined by the Surgical Pathology Department [facility]. It has not been cleared or approved by the U. S. Food and Drug Administration. Note for decalcified specimens: This assay has not been validated on decalcified tissues. Results should be interpreted with caution given the possibility of false negativity on decalcified specimens Iban Armenta MD LAB PATHOLOGY ORDERABLES Final Result Performing Organization Address City/State/[facility] Co de Phone Number PATHOLOGY [facility] ([address] [address] * XR Knee Right 1 or 2 View (03/31/2025 12:50 PM CDT) Anatomical Region Laterality Modality Lower Extremities, Knee Right Computed Radiography 03/31/2025 6:09 PM CDT Narrative 03/31/2025 6:10 PM CDT EXAM DESCRIPTION: XR KNEE RIGHT 1 OR 2 VIEWS REASON FOR STUDY: in pacu s/p right tka Post op R TKA. TECHNIQUE: 2 radiographic view(s) of the right knee . COMPARISON: Knee radiographs 11/19/2024 FINDINGS: Interval right knee arthroplasty. Alignment is near anatomic. Hardware components appear intact and there is no obvious periprosthetic fracture. There is gas in the adjacent soft tissues. IMPRESSION: Expected postoperative findings status post right knee arthroplasty. THIS IS AN ELECTRONICALLY VERIFIED FINAL REPORT 03/31/2025 6:10 PM - Electronically signed by Elieser Paiz M.D. AM: AM Report ID: [id number] Reading Location: [id number] Procedure Note Elieser Paiz MD - 03/31/2025 EXAM DESCRIPTION: XR KNEE RIGHT 1 OR 2 VIEWS REASON FOR STUDY: in pacu s/p right tka Post op R TKA. TECHNIQUE: 2 radiographic view(s) of the right knee . COMPARISON: Knee radiographs 11/19/2024 FINDINGS: Interval right knee arthroplasty. Alignment is near anatomic. Hardware components appear intact and there is no obvious periprosthetic fracture. There is gas in the adjacent soft tissues. IMPRESSION: Expected postoperative findings status post right knee arthroplasty. THIS IS AN ELECTRONICALLY VERIFIED FINAL REPORT 03/31/2025 6:10 PM - Electronically signed by Elieser Paiz M.D. AM: AM Report ID: [id number] Reading Location: [id number] Sharifa GONCALVES IMG XR PROCEDURES Fin al Result * Spinal Block (03/31/2025 10:44 AM CDT) Narrative Endy Meadows CRNA - 03/31/2025 10:44 AM CDT Endy Meadows CRNA 03/31/2025 10:45 AM Spinal Block Patient location: OR Reason for block: primary anesthetic Staff: Placed by: YARDAGE CONTROL OPERATOR:Endy Meadows CRNA Procedure prep: Preprocedure checklist: patient identified, procedure contraindications assessed, site marked, procedure consent, surgical consent, IV checked, risks, benefits and alternatives discussed, monitors and equipment checked and timeout performed Patient position: sitting Prep solution: chlorhexadine/alcohol PPE: provider hat/mask, sterile gloves and sterile drape Skin infiltrated with lidocaine 1%: yes Spinal: Approach: midline Location: L3-4 Spinal injection: CSF demonstrated Number of attempts: 1 Spinal Needle: Needle type: Kalyn Needle gauge: 22 G Needle length: 5 cm Assessment: Sensory deficit - left: full eval pending Sensory deficit - right: full eval pending Events: patient tolerated procedure well with no complications Result [facility] Yaniv Chandler DO ANESTHESIA ORDERABL ES Final Result * (ABNORMAL) aPTT (03/31/2025 9:29 AM CDT) aPTT 46(H) 28 - 38 sec DURGA CARDENAS ([place]) Comment: Interpretive Data Heparin therapeutic range: 66.0 - 100.0 seconds. Range based on correlation with therapeutic heparin activity range of 0.3 - 0.7 Units/mL. Current interpretive data was last revised on 2023. Blood 03/31/2025 9:29 AM CDT 03/31/2025 9:31 AM CDT Iban Armenta MD LAB BLOOD ORDERABLES Fin al Result Performing Organization Address [facility] de Phone Number DURGA CARDENAS ([place]) [address] [facility] [place] [address] * Protime-INR (03/31/2025 9:29 AM CDT) PT 10.5 9.7 - 13.0 sec DURGA CARDENAS ([place]) INR 0.97 0.90 - 1.20 DURGA CARDENAS ([place]) Comment: Interpretive data Oral anticoagulant therapeutic ranges: Venous thromboembolism prophylaxis or treatment: 2.0-3.0 CARDIOLOGY Standard range: 2.0-3.0 High-intensity range: 2.5-3.5 Refer to indication-specific guidelines for appropriate target ranges for prosthetic heart valve replacement. Current interpretive data was last revised on 2019. Blood 03/31/2025 9:29 AM CDT 03/31/2025 9:31 AM CDT Iban Armenta MD LAB BLOOD ORDERABLES Fin al Result Performing Organization Address [facility] Co de Phone Number [facility] [address] [place] [address] * ECG 12 lead (03/04/2025 8:03 AM CDT) 03/04/2025 8:04 AM CDT Narrative [facility] - 03/04/2025 8:24 AM CDT Vent Rate: 65 bpm RR Interval: 920 msec VT Interval: 116 msec QRS Duration: 214 msec QT Interval: 544 msec QTC Interval: 555 msec P-R-T [place]: 183 - 61 - 56 degrees IMPRESSION: ECTOPIC ATRIAL RHYTHM WITH SHORT VT INTERVAL LEFT BUNDLE BRANCH BLOCK [120+ ms QRS DURATION, 80+ ms Q/S IN V1/V2, 85+ ms R IN I/aVL/V5/V6] PROLONGED QT INTERVAL CRITICAL TEST RESULT Electronically Signed By: Babar Martínez MD us Iban Armenta MD ECG ORDERABLES Final Re sult [facility] * eGFR (03/04/2025 7:42 AM CDT) eGFR 75 >=60 mL/min/1. 73 m2 Comment: Interpretive Data Reference Interval Normal >/= 90 mL/min/1.73m2 Mildly decreased* 60 - 89 mL/min/1.73m2 Mildly to moderately decreased 45 - 59 mL/min/1.73m2 Moderately to severely decreased 30 - 44 mL/min/1.73m2 Severely decreased 15 - 29 mL/min/1.73m2 Kidney Failure < 15 mL/min/1.73m2 *Relative to young adult level Estimated glomerular filtration rate is determined by the 2020 CKD-EPI equation recommended by the National Kidney Foundation (A Unifying Approach to GFR Estimation: Recommendations of the NKF-ASK Task Force on Reassessing the Inclusion of Race in Diagnosing Kidney Disease, JASN 2020). The CKD-EPI equation should not be used for patients with unstable renal function and has not been validated in children and those over 70. Current interpretive data was last reviewed 2021. Blood 03/04/2025 7:42 AM CDT 03/04/2025 8:41 AM CDT us Iban Armenta MD LAB BLOOD ORDERABLES Fin al Result [facility] CARDENAS ([place]) [address] [facility] [place] [address] * Differential, auto (03/04/2025 7:42 AM CDT) Neutrophil abs 5.16 1.50 - 6.50 K/cumm Imm gran abs 0.03 0.00 - 0.10 K/cumm [facility] ([place]) Lymphocyte abs 1.35 0.80 - 3.30 K/cumm [facility] ([place]) Monocyte abs 0.78 0.20 - 0.80 K/cumm [facility] ([place]) Eosinophil abs 0.11 0.00 - 0.50 K/cumm [facility] ([place]) Basophil abs 0.04 0.00 - 0.10 K/cumm [facility] ([place]) Neutrophil pct 69.1 % [facility] ([place]) Comment: Interpretive Data Percent cell count reference ranges are not reported, since discordance with absolute values may lead to misinterpretation of CBC data. Current Interpretive Data was last revised on 2018. Imm gran pct 0.4 % [facility] ([place]) Comment: Interpretive Data Percent cell count reference ranges are not reported, since discordance with absolute values may lead to misinterpretation of CBC data. Current Interpretive Data was last revised on 2018. Lymphocyte pct 18.1 % [facility] ([place]) Comment: Interpretive Data Percent cell count reference ranges are not reported, since discordance with absolute values may lead to misinterpretation of CBC data. Current Interpretive Data was last revised on 2018. Monocyte pct 10.4 % [facility] ([place]) Comment: Interpretive Data Percent cell count reference ranges are not reported, since discordance with absolute values may lead to misinterpretation of CBC data. Current Interpretive Data was last revised on 2018. Eosinophil pct 1.5 % [facility] ([place]) Comment: Interpretive Data Percent cell count reference ranges are not reported, since discordance with absolute values may lead to misinterpretation of CBC data. Current Interpretive Data was last revised on 2018. Basophil pct 0.5 % [facility] ([place]) Comment: Interpretive Data Percent cell count reference ranges are not reported, since discordance with absolute values may lead to misinterpretation of CBC data. Current Interpretive Data was last revised on 2018. Blood 03/04/2025 7:42 AM CDT 03/04/2025 8:41 AM CDT us Iban Armenta MD LAB BLOOD ORDERABLES Fin al Result [facility] ([place]) [address] [facility] Department [place] [address] * (ABNORMAL) Urinalysis reflex to microscopic and culture Urine (03/04/2025 7:42 AM CDT) Color, ur Yellow Yellow Clarity, ur Clear Clear [facility] A ([place]) Specific gravity, ur 1.036(H) 1.003 - 1.030 [facility] ([place]) pH, urine 6.0 [facility] ([place]) Comment: Interpretive Data U rine pH is affected by diet, medications, systemic acid-base disturbances, and renal tubular function. pH may affect urinary stone formation. For example, urine pH below 6.0 may help reduce the tendency for calcium phosphate stones and pH greater than 6.0 may reduce the tendency for uric acid stone formation. Source: [facility] [employer] Current Interpretive Data was last revised on 2017 Protein, ur ql 1+(A) Negative [facility] ([place]) Glucose, ur ql Negative Negative [facility] ([place]) Ketones, ur Negative Negative [facility] ([place]) Bilirubin, ur Negative Negative [facility] ([place]) Blood, ur Negative Negative [facility] ([place]) Urobilinogen, ur 2.0(A) <2.0 mg/dL [facility] ([place]) Nitrite, ur Negative Negative [facility] ([place]) Leukocyte esterase, ur Negative Negative [facility] ([place]) UA reflex comment Reflex to microscopic UA will be performed. [facility] ([place]) Urine 03/04/2025 7:42 AM CDT 03/04/2025 8:37 AM CDT us Iban Armenta MD LAB MICROBIOLOGY - GENER AL ORDERABLES Final Result [facility] ([place]) 1 [facility] Department [place] [address] * (ABNORMAL) CBC with auto differential (03/04/2025 7:42 AM CDT) WBC 7.47 3.80 - 9.90 K/cumm Hgb 13.5 13.0 - 17.5 g/dL [facility] ([place]) Hct 41.4 38.9 - 50.3 % [facility] ([place]) Plt 251 150 - 400 K/cumm [facility] ([place]) MPV 8.9(L) 9.1 - 12.3 fL [facility] ([place]) RBC 4.39 4.30 - 5.80 M/cumm [facility] ([place]) MCV 94.3 81.3 - 96.4 fL [facility] ([place]) MCH 30.8 27.1 - 33.3 pg [facility] ([place]) MCHC 32.6 32.3 - 35.7 g/dL [facility] ([place]) RDW CV 14.6 11.1 - 14.9 % [facility] ([place]) RDW SD 50.5(H) 35.7 - 48.1 fL [facility] ([place]) NRBC abs 0.00 0.00 - 0.01 K/cumm [facility] ([place]) Blood 03/04/2025 7:42 AM CDT 03/04/2025 8:41 AM CDT us Iban Armenta MD LAB BLOOD ORDERABLES Fin al Result [facility] ([place]) 1 [facility] [place] [address] * (ABNORMAL) Urinalysis, microscopic only (03/04/2025 7:42 AM CDT) WBC, ur 0-5 0 - 5 /HPF RBC, ur 0-2 0 - 2 /HPF [facility] ([place]) Epithelial cells, squamous, ur 1-5 0 - 5 /HPF [facility] ([place]) Mucous, ur Present(A) [facility] ([place]) Hyaline casts, ur 6-10 0 - 10 /LPF [facility] ([place]) Culture Reflex Comment Reflex conditions for urine culture (WBC >10) not met. [facility] ([place]) Urine 03/04/2025 7:42 AM CDT 03/04/2025 8:37 AM CDT Iban Armenta MD LAB URINE ORDERABLES Fin al Result Performing Organization Address [facility] de Phone Number [facility] ([place]) [address] [place] [address] [place] [address] * (ABNORMAL) Hemoglobin A1c (03/04/2025 7:42 AM CDT) Pathologist [facility] Hgb A1C 5.8(H) 4.0 - 5.6 % Estimated Average Glucose 120 mg/dL [facility] ([place]) Comment: The ADA recommends reporting an estimated Average Glucose (eAG) with all Hemoglobin A1c results using the equation derived from a study of 507 normal and diabetic adults. Minority populations were underrepresented and children were not included. (Diabetes Care 31:6143-4209, 2008). The eAG is not equivalent to a fasting glucose. Blood 03/04/2025 7:42 AM CDT 03/04/2025 8:41 AM CDT Iban Armenta MD LAB BLOOD ORDERABLES Fin al Result Performing Organization Address [facility] Co de Phone Number [facility] ([place]) 1 [facility] [place] [address] * Comprehensive metabolic panel (03/04/2025 7:42 AM CDT) Sodium 138 135 - 145 mmol/L Potassium, pl 3.9 3.3 - 4.9 mmol/L [facility] ([place]) Chloride 103 97 - 110 mmol/L [facility] ([place]) CO2 25 22 - 32 mmol/L [facility] ([place]) Anion gap 10 2 - 15 mmol/L [facility] ([place]) BUN 16 6 - 25 mg/dL [facility] ([place]) Creatinine 1.04 0.80 - 1.30 mg/dL [facility] ([place]) Glucose 110 70 - 199 mg/dL [facility] ([place]) Comment: Interpretive Data Fasting glucose >/= 126 mg/dl is diagnostic for diabetes. Fasting is defined as no caloric intake for at least 8 hours. Fasting glucose between 100 mg/dl to 125 mg/dl is diagnostic of prediabetes. In a patient with classic symptoms of hyperglycemia or hyperglycemic crisis, a random glucose >/= 200 mg/dl is diagnostic for diabetes. In the absence of unequivocal hyperglycemia, results should be confirmed by repeat testing. The classification and Diagnosis of Diabetes Diabetes Care 2021; 46: S19-S40. Current interpretive data was last revised 2022. Calcium 9.7 8.5 - 10.3 mg/dL [facility] ([place]) Bilirubin, total 0.7 0.1 - 1.2 mg/dL [facility] ([place]) Protein, pl 6.9 6.5 - 8.5 g/dL [facility] ([place]) Albumin 4.1 3.5 - 5.0 g/dL [facility] ([place]) Alk phos 72 40 - 130 Units/L [facility] ([place]) ALT 11 7 - 55 Units/L [facility] ([place]) AST 14 10 - 50 Units/L [facility] ([place]) Blood 03/04/2025 7:42 AM CDT 03/04/2025 8:41 AM CDT us Iban Armenta MD LAB BLOOD ORDERABLES Fin al Result [facility] ([place]) 1 [facility] [place] [address] from Last 3 Months Insurance Advance Directives For more information, please contact: [phone] * Full Code (Latest Code Status on File) Date Activated Date Inactivated Comments 03/31/2025 1:29 PM 04/01/2025 6:12 PM Care Teams Joss House Keeper Relationship Specialty Start Date End Date Jorge Agustin DO PCP - General Internal Medicine 06/08/17 Ricardo Clarke DO Consulting Physician Gastroenterology 08/27/19 Iban Armenta MD [address] [facility] [address]SEPH [address] [place] [id number] Surgeon Orthopedic Surgery 04/01/25
--- OUTSIDE RECORDS SUMMARY | 2025-04-30 06:30 | XMS_ITS | Data Portability ---
Author Organization [facility] [employer], Main Office Address [address] [place] [address] Care Team Providers Care Ice Cream Maker Name Role Phone EARL JEROME Primary Care Provider EARL JEROME Referring Provider Assessment Encounter Date Assessment Date Assessment LastModified by Organization Details LastModified Time 02/26/2024 02/26/2024 The patient has developed extensive ecchymosis and mild swelling due to hematoma type formation throughout the right lower extremity after crawling around on his driveway for extensive. While cleaning up debris from his trees. He is on Xarelto 20 mg daily and has had a bleed in the right lower extremity. 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 We talked about treatment today basically he is going to work on elevation use a heating pad to help the resolving hematoma and he will work on range of motion of his hip and knee and stay off of work we will keep him off for a week he can return to work full duty next week as tolerated. If he has worsening or continuing symptoms he will call me otherwise a he can be seen back as needed. He voiced understanding agrees above plan will call for any further problems difficulties or questions. [email or web address] Not available 02/26/2024 12:21:37 Plan of Treatment Reminders Order Date Submit Date Provider Last Modified By Organization Details Last Modified Time Details Appointments None recorded. Lab None recorded. Referral None recorded. Procedures None recorded. Surgeries None recorded. Imaging XR, knee 2023 024 [email or web address] [facility] [place], [facility] [facility] [address], [place], [address], 4 13:04:34 XR, hip, unilateral 2023 024 [email or web address] [facility] [place], [address] [facility] [address], [address], 4 13:04:34 Medication Orders None recorded. Patient TargetsNo targets recorded. Patient InstructionsNo instructions recorded. Reason for Referral None Reported. Results Created Date Observation Date Name Description Value Unit Range Abnormal Flag Note LastModifiedBy Organization Detail LastModifiedTime 02/26/20 24 XR, hip, unila teral No observ ation record ed. [email or web address] [facility] [place] [address] [facility] [address], [address], 02/26/2024 12:22:36 02/26/20 24 XR, knee No observ ation record ed. [email or web address] [facility] [place] [address] [facility] [address], [address], 02/26/2024 12:23:51 Result Notes None recorded. Problems Name Problem SNOMED Code Status Onset Date Resolution Date Notes Provider Name and Address Organization Details Recorded Time Pain of right thigh 8283757398057 07 Active 2023 MARGOTH Claudio, [place] 4 11:14:47 Pain of right hip joint 5786010228211 02 Active 2023 MARGOTH Claudio, [place] 4 11:17:20 Pain of right knee joint 9114564962334 00 Active 2023 MARGOTH Claudio, [place] 4 11:40:17 Osteoarthri tis of right knee joint 9833999340521 00 Active 2023 SACHA Amin [address] [facility], [facility] [address], [place], [address] , [place] 4 12:24:01 Hematoma of right knee region 4080783041370 9100 Active 2023 SACHA Amin [address] [facility], [facility] [address], [place], [address], [place] 12:24:28 Problem Notes None recorded. Procedures Surgical History Date Name Laterality Status Provider Name and Address Organization Details Recorded Time total replacement of hip completed MARGOTH Claudio [employer] [facility] 02/26/2024 11:13:00 Imaging Results None recorded. Procedure Notes None recorded. Medical Equipment None Reported. Medications Name Sig Start Date Stop Date Status Note LastModified by Organization Details LastModified Time amoxicillin 500 mg capsule TAKE 4 CAPSULES BY MOUTH 1 HOUR BEFORE APPOINTME NT 02/25 completed Not Available Not Available Not Available carvedilol 6.25 mg tablet active Not Available Not Available Not Available azithromyci n 250 mg tablet TAKE 2 TABLETS BY MOUTH FOR 1 DAY THEN TAKE 1 TABLET BY MOUTH DAILY FOR 4 DAYS 02/25 completed Not Available Not Available Not Available benzonatate 200 mg capsule 02/25 completed Not Available Not Available Not Available flecainide 100 mg tablet active Not Available Not Available Not Available gabapentin 300 mg capsule 02/19 completed Not Available Not Available Not Available losartan 100 mg tablet active Not Available Not Available Not Available Xarelto 20 mg tablet active Not Available Not Available No t Available Vitals Date Recorded Body height Body mass index (BMI) Body weight Provider Name and Address Organization Details Last Updated DateTime 02/26/2024 180.34 cm 21.6 kg/m2 80592.82 g Harriet Bauer Milagro [employer] [facility] 02/26/2024 11:11:05 Social History None recorded. Functional Status Question Answer Note LastModified by Organization D etails LastModified Time What is your level of alcohol consumption? None [email or web address] Information not available 02/26/2024 Mental Status None recorded. Family History Relationship Description Onset Age of this Age Resolved Age Notes LastModified by Organization Details LastModified Time Mother Family history of stroke [email or web address] Not available 2023 11:11:53 Father Hypertensive disorder Not available 2023 11:12:02 Father Diabetes mellitus [email or web address] Not available 2023 11:12:12 Medical History Condition Response USE OF BLOOD THINNERS Y HEPATITIS / LIVER DISEASE Y Past Encounters Encounter ID Performer Location Encounter Start Date Encounter Closed Date Diagnosis/Indication Diagnosis SNOMED-CT Code Diagnosis ICD10 Code Diagnosis Note [id number] Earl Sumner MD [facility] [place] [address] [place] [address] 02/26/2024 10:45:41 02/26/2024 12:11:04 Pain of right hip joint 4507001627 09991 M25.551 Pain of ri ght knee joint 0170125265 41363 M25.561 Osteoarthr itis of right knee joint 4887483762 81281 M17.11 Hematoma o f right knee region 5945706852 7811985 S80.01XA Health Concerns Section Related Observation LastModified by Organization Detai ls LastModified Time None Recorded Concern Status LastModified by Organization Details LastModified Time None Recorded Advance Directives Directive None Recorded Payers Insurance Date Sequence Insurance Name Policy Number Policy Mejia Covered Member ID Mejia Member ID Guarantor Name 02/26/2024 1 [employer] - DOS PRIOR TO 21 - [facility] [employer] Tonio Goodson [id number] Tonio Goodson 03/04/2024 1 [employer] [facility] [employer] Tonio Goodson [id number] OI Tonio Goodson 03/04/2024 1 [employer] Tonio Goodson [id number] OI Tonio Goodson Notes Date Note Type Note Provider Name and Address Organization Details Recorded Time 02/26/2024 text/html the patient is a 73-year-old male who presents with extensive ecchymosis throughout the right hamstring knee and calf that has been ongoing for 1 week now. He states it started when he was on his driveway on concrete kneeling moving around picking up gum balls off the tree. He started to note some pain around the knee and thigh with his activity. Get to the point where he had to stop he went in the house started to notice that he was getting some swelling and ecchymosis that became quite extensive. He states he is on Xarelto 20 mg daily and knows he has osteoarthritis in his right knee not sure about his hip. He has had the other hip replaced many years ago this is doing very well. He states over the course of the week he has been elevating the leg and trying to stay off of it but still has been working here and there which aggravates his symptoms. He denies any pain in the groin he does have some anterior and posterior thigh pain and tenderness anterior knee pain tenderness swelling and extensive ecchymosis from the posterior thigh to his calf. Also in the front of the knee anteriorly. It appears as though he is had some bleeding from his blood thinners from the activities he was doing as described. He comes in today bearing full weight fairly comfortably mainly has tenderness and some swelling with ecchymosis. He states the pain and tenderness about a 6 on a scale of 1-10 at the worst however it is improving with time. He has been taking Tylenol and resting as much as he can. New past medical history sheet was reviewed and signed on the intake sheet of today's date drug allergies current medications family social history previous surgical history 10 point review of systems was reviewed and discussed in detail today with the patient. SACHA Amin [address] [facility], [facility] [address], [place], [address], [place] [facility] [employer] 02/26/2024 12:25:15
--- OUTSIDE RECORDS SUMMARY | 2025-04-30 06:30 | XMS_ITS | Referral Summary ---
Author Organization [facility] [place] [address] [place] [address] Care Team Providers Care Rinkman Name Role Phone Jorge Agustin DO Primary Care Provider + [phone] Ricardo Clarke DO Unavailable [phone] Iban Armenta MD Unavailable [phone] Encounters Date Type Department Care Team Description 04/29/2025 1:30 PM CDT Office Visit [facility] Orthopedic and Sports Medicine [address] [place] [address] Olya Winkler PA Acute pain of left shoulder (Primary Dx) 04/22/2025 Results Follow-Up [facility] Con[facility]ient [facility] at [address] [address] Britta Johnston NP XR Shoulder Left 2+ Vw 04/22/2025 2:35 PM CDT Ancillary Procedure [facility] Imaging at [address] [address] Acute pain of left shoulder 04/22/2025 2:15 PM CDT Office Visit [facility] at [address] [address] Britta Johnston, OSITO Acute pain of left shoulder (Primary Dx) 04/17/2025 2:00 PM CDT Office Visit [facility] Cardiology [address] [place] [address] Jessica Dubose NP Labile hypertension; Paroxysmal atrial fibrillation (HCC); Lipid screening 04/17/2025 11:00 AM CDT Telemedicine [facility] Orthopedics and Sports Medicine [address] [place] [address] [address] [place] [address] Ping Friedman NP Aftercare following right knee joint replacement surgery (Primary Dx) 04/03/2025 Telephone [facility] Orthopedics and Sports Medicine [address] [place] [address] [address] [place] [address] Iban Armenta MD Post-op Problem 03/31/2025 8:41 AM CDT - 04/01/2025 2:07 PM CDT Hospital Encounter [facility] Surgery Care 1 [place] [address] Iban Armenta MD Primary osteoarthritis of right knee Discharge Disposition: Discharge to home or self care 03/31/2025 11:25 AM CDT - 03/31/2025 1:55 PM CDT Surgery [facility] Operating Room 1 [place] [address] Iban Armenta MD Right Total Knee Arthroplasty- Robotic, 03/31/2025 10:20 AM CDT Anesthesia Event [facility] Operating Room 1 [place] [address] Yaniv Chandler DO Reynolds, Ethan Emerson, MD 03/28/2025 Documentation [facility] Orthopedics and Sports Medicine [address] [place] [address] [address], [place] [address] Ifrah Padilla MA Surgical Clearance 03/06/2025 9:30 AM CDT Office Visit [facility] Cardiology [address] [facility] [address] [place] [address] Jessica Dubose NP Pre-operative exam (Primary Dx); Chronic anticoagulation 03/04/2025 7:25 AM CDT - 03/04/2025 11:59 PM CDT Hospital Encounter [facility] Cardiology [address] [place] [address] Pre-operative exam Discharge Disposition: Discharge to home or self care 03/04/2025 7:25 AM CDT Lab [address] [address] Pre-operative exam 02/25/2025 Telephone [facility] Cardiology [address] [place] [address] Gil Loza MD 02/07/2025 Telephone [facility] Orthopedics and Sports Medicine [address] [facility] [address] [place] [address] Iban Armenta MD 02/07/2025 Telephone [facility] Cardiology [address] [place] [address] [place] [address] Jessica Dubose NP 02/05/2025 3:10 PM CDT Office Visit [facility] Cardiology [address] [place] [address] [place] [phone] Essential hypertension (Primary Dx) 02/05/2025 Telephone [facility] Orthopedics and Sports Medicine [address] [place] [address] [address] [place] [address] Iban Armenta MD 01/30/2025 Telephone [facility] Cardiology [address] [place] [address] [place] [address] Adelaida Sevilla MA 01/29/2025 Telephone [facility] Orthopedics and Sports Medicine [address] [place] [address] [address], [place] [address] Iban Armenta MD from Last 3 Months Allergies No known active allergies Medications sildenafiL [...] as needed for pain. 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 Gender Identity Not on file Sexual Orientation Not on file Last Filed Vital Signs Vital Sign Reading [...] 04/29/2025 1:24 PM CDT Plan of Treatment Not on file Medical Devices Implanted Type Area Automotive Engineer Device Identifier Shelf Expiration Date Model / Serial / Lot [employer] Tibial Baseplate Knee Porous Fixed Attune Affixium Size 6 Titanium [id number] - [id number] Implanted:Qty: 1 on 03/31/2025 by Iban Armenta MD at [facility] Right: Knee [employer] [id number] 02/19/2034 [id number] / / [id number] [employer] Attune Cruciate Retain Cementless Knee Right 6 Component Femoral [id number] - [id number] Implanted:Qty: 1 on 03/31/2025 by Iban Armenta MD at [facility] Right: Knee [employer] [id number] 12/20/2034 [id number] / / [id number] [employer] Insert Tibial Attune Right Medial Stabilized Sz 6 6mm Fixed Bearing Polyethylene [id number] - [id number] Implanted:Qty: 1 on 03/31/2025 by Iban Armenta MD at [facility] Right: Knee [employer] [id number] 12/20/2032 [id number] / / [id number] Procedures Procedure Name Priority Date/Time Associated Diagnosis [...] - Robotic, Depuy- Attune , Velys, [facility] Care, 1 Liter Beta Rinse, Pt to [...] Catherine Cooper M.D. AT T: Report ID: [id number] Reading Location: [id number] Procedure Note Catherine Cooper MD - 04/22/2025 [...] Catherine Cooper M.D. AT T: Report ID: [id number] Reading Location: [place] [address] Britta Johnston GLASS FORMING ENGINEER IMG XR PROCEDURES Final Re sult * (ABNORMAL) POCT lipid panel (04/17/2025 2:02 PM CDT) Pathologist [facility] Cholesterol, POC 148 <200 MG/DL HDL, POC [...] Result * eGFR (04/01/2025 4:22 AM CDT) Pathologist [facility] eGFR 75 >=60 mL/min/1. 73 m2 Comment: [...] ORDERABLES Final Result [facility] ([place]) 1 [facility] [place] [address] * (ABNORMAL) CBC without differential (04/01/2025 4:22 [...] ORDERABLES Final Result [facility] ([place] 1 [facility] [place] [address] * Basic metabolic panel (04/01/2025 4:22 AM [...] Sharifa GONCALVES LAB BLOOD ORDERABLES Final Result Performing Organization Address City/[facility]/ZIP Co de Phone Number [facility] ([place]) 1 [facility] Department [place] [address] * ECG 12 lead (03/31/2025 6:19 PM CDT) 03/31/2025 6:19 PM CDT Narrative [facility] - 04/01/2025 1:20 PM CDT Vent Rate: 99 bpm RR Interval: 604 msec OH Interval: 0 msec QRS Duration: 190 msec QT Interval: 453 msec QTC Interval: 509 msec P-R-T [place]: [address] - -10 - 87 degrees IMPRESSION: ATRIAL FIBRILLATION WITH ABERRANT CONDUCTION OR VENTRICULAR PREMATURE COMPLEXES LEFT BUNDLE BRANCH BLOCK [120+ ms QRS DURATION, 80+ ms Q/S IN V1/V2, 85+ ms R IN I/aVL/V5/V6] ABNORMAL ECG Compared to prior EKG atrial fibrillation has replaced sinus rhythm Electronically Signed By: Esa Salinas MD [facility] Iban Amrenta MD ECG ORDERABLES Final Re sult Performing Organization Address [facility] Co de Phone Number [facility] [employer] [facility] * POCT glucose (03/31/2025 6:04 PM CDT) Glucose, POC 156 70 - 199 mg/dL Blood 03/31/2025 6:04 PM CDT 03/31/2025 6:04 PM CDT Iban Armenta MD LAB POCT ORDERABLES - DE VICE Final Result Performing Organization Address [facility]/ZIP Co de Phone Number [facility] ([place]) 1 [facility] [place] [address] * Surgical pathology (03/31/2025 1:47 PM CDT) Tissue (Bone Fragment(s),) 03/31/2025 11:16 AM CDT Narrative [facility] ([place]) - 04/02/2025 1:38 PM CDT EPIC results best viewed via link to PDF [facility] Department of Pathology [address] [place] [address] Note to Patients: This report may contain [...] Final Report Patient Name: BERNARDA GOODSON Address: [address] [place] [address] Gender: M : 1950 (Age: 75) Service: Surgery Location: [facility] Hospital #: [id number] Patient Type: [facility] OP in bed Taken: 03/31/2025 Received: 03/31/2025 [...] determined by the Surgical Pathology Department at [facility] as part of an ongoing it quality analyst program and in compliance with federally mandated [...] characteristics determined by the Surgical Pathology Department [facility]. It has not been cleared or approved by the U. S. Food and Drug Administration. Note for decalcified specimens: This assay has not been validated on decalcified tissues. Results should be interpreted with caution given the possibility of false negativity on decalcified specimens Iban Armenta MD LAB PATHOLOGY ORDERABLES Final Result Performing Organization Address City/State/[facility] Co de Phone Number PATHOLOGY [address] [address] * XR Knee Right 1 or 2 [...] Elieser Paiz M.D. AM: AM Report ID: [id number] Reading Location: [id number] Procedure Note Elieser Paiz MD - 03/31/2025 [...] Elieser Paiz M.D. AM: AM Report ID: [id number] Reading Location: [place] [address] Sharifa GONCALVES IMG XR PROCEDURES Fin al Result * Spinal Block (03/31/2025 10:44 AM CDT) Narrative Endy Meadows CRNA - 03/31/2025 10:44 AM CDT Endy Meadows CRNA 03/31/2025 10:45 AM Spinal Block Patient location: OR Reason for block: primary anesthetic Staff: Placed by: RADHA:Endy Meadows CRNA Procedure prep: Preprocedure checklist: patient [...] patient tolerated procedure well with no complications Yaniv Chandler DO ANESTHESIA ORDERABL ES Final Result * (ABNORMAL) aPTT (03/31/2025 9:29 AM CDT) aPTT 46(H) 28 - 38 sec [facility] ([place]) Comment: Interpretive Data Heparin therapeutic range: 66.0 - 100.0 seconds. Range based on correlation with therapeutic heparin activity range of 0.3 - 0.7 Units/mL. Current interpretive data was last revised on 2023. Blood 03/31/2025 9:29 AM CDT 03/31/2025 9:31 AM CDT Iban Armenta MD LAB BLOOD ORDERABLES Fin al Result [facility] ([place]) 1 [facility] [place] [address] * Protime-INR (03/31/2025 9:29 AM CDT) PT 10.5 9.7 - 13.0 sec [facility] ([place]) INR 0.97 0.90 - 1.20 [facility] [...] LAB BLOOD ORDERABLES Fin al Result [facility]) 1 [facility] [place] [address] * ECG 12 lead (03/04/2025 8:03 AM CDT) 03/04/2025 8:04 AM CDT Narrative [facility] - 03/04/2025 8:24 AM CDT Vent Rate: 65 bpm RR Interval: 920 msec OH Interval: 116 msec QRS Duration: 214 msec QT Interval: 544 msec QTC Interval: 555 msec P-R-T [place]: 183 - 61 - 56 degrees IMPRESSION: ECTOPIC ATRIAL RHYTHM WITH SHORT OH INTERVAL LEFT BUNDLE BRANCH BLOCK [120+ ms QRS DURATION, 80+ ms Q/S IN V1/V2, 85+ ms R IN I/aVL/V5/V6] PROLONGED QT INTERVAL CRITICAL TEST RESULT Electronically Signed By: Babar Martínez MD Iban Armenta MD ECG ORDERABLES Final Re sult [facility] [employer] [facility] * eGFR (03/04/2025 7:42 AM CDT) eGFR [...] LAB BLOOD ORDERABLES Fin al Result [facility] ([place]) 1 [facility] [place] [address] * Differential, auto (03/04/2025 7:42 AM CDT) Neutrophil abs 5.16 1.50 - 6.50 K/cumm Imm gran abs 0.03 0.00 - 0.10 K/cumm [facility] ([place]) Lymphocyte abs 1.35 0.80 - 3.30 K/cumm [facility] ([place]) Monocyte abs 0.78 0.20 - 0.80 K/cumm [facility] ([place]) Eosinophil abs 0.11 0.00 - 0.50 K/cumm [facility] ([place]) Basophil abs 0.04 0.00 - 0.10 K/cumm [facility] ([place]) Neutrophil pct 69.1 % [facility] ([place]) Comment: Interpretive Data Percent cell count reference ranges are not reported, since discordance with absolute values may lead to misinterpretation of CBC data. Current Interpretive Data was last revised on 2018. Imm gran pct 0.4 % [facility] ([place]) Comment: Interpretive Data Percent cell count reference ranges are not reported, since discordance with absolute values may lead to misinterpretation of CBC data. Current Interpretive Data was last revised on 2018. Lymphocyte pct 18.1 % [facility] ([place]) Comment: Interpretive Data Percent cell count reference ranges are not reported, since discordance with absolute values may lead to misinterpretation of CBC data. Current Interpretive Data was last revised on 2018. Monocyte pct 10.4 % [facility] ([place]) Comment: Interpretive Data Percent cell count reference ranges are not reported, since discordance with absolute values may lead to misinterpretation of CBC data. Current Interpretive Data was last revised on 2018. Eosinophil pct 1.5 % [facility] ([place]) Comment: Interpretive Data Percent cell [...] BLOOD ORDERABLES Fin al Result [facility] ([place]) 1 [facility] [place] [address] * (ABNORMAL) Urinalysis reflex to microscopic and culture Urine (03/04/2025 7:42 AM CDT) Color, ur Yellow Yellow Clarity, ur Clear Clear [facility] ([place]) Specific gravity, ur 1.036(H) 1.003 - [...] tendency for uric acid stone formation. Source: [facility] Current Interpretive Data was last revised on 2017 Protein, ur ql 1+(A) Negative [facility] ([place]) Glucose, ur ql Negative Negative [facility] ([place]) Ketones, ur Negative Negative [facility] ([place]) Bilirubin, ur Negative Negative [facility] ([place]) [...] ORDERABLES Final Result [facility] ([place]) 1 [facility] [place] [address] * (ABNORMAL) CBC with auto differential (03/04/2025 7:42 AM CDT) WBC 7.47 3.80 - 9.90 K/cumm Hgb 13.5 13.0 - 17.5 g/dL [facility] ([place]) Hct 41.4 38.9 - 50.3 % [facility] [...] LAB BLOOD ORDERABLES Fin al Result [facility] ([place]) 1 [place] [address] * (ABNORMAL) Urinalysis, microscopic only (03/04/2025 7:42 AM CDT) WBC, ur 0-5 0 - 5 /HPF RBC, ur 0-2 0 - 2 /HPF [facility] ([place]) Epithelial cells, squamous, ur 1-5 0 - 5 /HPF [facility] ([place]) Mucous, ur Present(A) [facility] Hyaline casts, ur 6-10 0 - 10 /LPF [facility] ([place]) Culture Reflex Comment Reflex conditions for urine culture (WBC >10) not met. [facility] ([place]) Urine 03/04/2025 7:42 AM CDT 03/04/2025 8:37 AM CDT Iban Armenta MD LAB URINE ORDERABLES Fin al Result Performing Organization Address [facility] de Phone Number [facility] ([place]) 1 [place] [address] * (ABNORMAL) Hemoglobin A1c (03/04/2025 7:42 AM CDT) Hgb A1C 5.8(H) 4.0 - 5.6 % Estimated Average Glucose 120 mg/dL [facility] ([place]) Comment: The ADA recommends reporting an estimated Average Glucose (eAG) with all Hemoglobin A1c results using the equation derived from a study of 507 normal and diabetic adults. Minority populations were underrepresented and children were not included. (Diabetes Care 31:8183-7232, 2008). The eAG is not equivalent to a fasting glucose. Blood 03/04/2025 7:42 AM CDT 03/04/2025 8:41 AM CDT Iban Armenta MD LAB BLOOD ORDERABLES Fin al Result Performing Organization Address [facility] Co de Phone Number [facility] ([place]) 1 [facility] [place] [address] * Comprehensive metabolic panel (03/04/2025 7:42 AM [...] MD LAB BLOOD ORDERABLES Fin al Result [facility] [place]) 1 [facility] [place] [id number] from Last 3 Months Insurance [facility] [id number] Advance Directives For more information, please contact: [phone] * Full Code (Latest Code Status on File) Date Activated Date Inactivated Comments 03/31/2025 1:29 PM 04/01/2025 6:12 PM Care Teams Rinkman Relationship Specialty Start Date End Date Jorge Agustin DO PCP - General Internal Medicine 06/08/17 Ricardo Clarke DO Consulting Physician Gastroenterology 08/27/19 Iban Armenta MD [address] [place] [address] [place] [address] Surgeon Orthopedic Surgery 04/01/25
--- OUTSIDE RECORDS SUMMARY | 2025-04-30 06:30 | XMS_ITS | Clinical Summary ---
Author Organization [facility] Address [address] [place] [address] Phone Care Team Providers Care Fermenting Cellar Dropper Name Role Phone Jorge Agustin DO Primary Care Provider Idalia Lipscomb APRN, OBIEE OBIA SOLUTION ARCHITECT Unavailable Allergies No known active allergies Medications No known medications Active Problems No known active problems Immunizations Immunization Administration Dates Next Due Covid-19, Mrna, Lnp-s, Pf, 30 Mcg/0.3 Ml Dose (P fizer) 01/27/2021,12/30/2020 Family History Medical History Relation Name Comments Diabetes Father Heart Attack Father Heart Disease Father Dementia Mother Hypertension Mother Relation Name Status Comments Father Mother Social History Tobacco Use Types Packs/Day Years Used Date Smoking Tobacco: Former Cigarettes 1.5 15 Alcohol Use Standard Drinks/Week Comments Yes 0 (1 standard drink = 0.6 oz pure alcohol) occasionally beer a few times per week Sex and Gender Information Value Date Recorded Sex Assigned at Not on file Legal Sex Male 12:14 AM CDT Gender Identity Not on file Sexual Orientation Not on file Occupation Industry Job Start Date Job End Date [employer] Not on file Not on file Not on file Last Filed Vital Signs Vital Sign Reading Time Taken Comments Blood Pressure 140/90 09/07/2016 9:13 AM 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 Pulse 84 09/07/2016 9:13 AM 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 Temperature 36.1 C (97 F) 09/07/2016 9:13 AM 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 Respiratory Rate 14 09/07/2016 9:13 AM 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 Oxygen Saturation 96% 09/07/2016 9:13 AM 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 Inhaled Oxygen Concentration - - Weight 78.5 kg (173 lb) 11/25/2016 10:05 AM 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 Height 177.8 cm (5' 10) 11/25/2016 10:05 AM 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 Body Mass Index 24.82 11/25/2016 10:05 AM 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 Plan of Treatment Health Maintenance Due Date Last Done Comments TdaP Immunization 1950 Cologuard 1995 Immunochemical Fecal Occult Blood 1995 Zoster Immunization (2 of 3) 11/14/2017 09/19/2017 Pneumococcal Immunization (5 0+ years) (2 of 2 - PPSV23) 09/19/2018 09/19/2017 SARS-COV-2 Immunization ( - season) 2024 09/06/2021, 01/27/2021, 12/30/2020 Respiratory Syncytial Virus (RSV) Immunization (Adult) (1 - 1-dose 75+ series) 2025 Influenza Immunization (#1) 2025 09/09/2017 Colonoscopy 10/03/2026 10/03/2019, 09/05/2013 Colorectal Cancer Screening 10/03/2026 Pneumococcal Immunization Combined Discontinued 09/19/2017 Hepatitis B Immunization Aged Out No longer eligible based on patient's age to complete this topic Human Papillomavirus (HPV) Immunization Aged Out No longer eligible based on patient's age to complete this topic Meningococcal Immunization (ACWY) Aged Out No longer eligible based on patient's age to complete this topic Rotavirus Immunization Aged Out No lo nger eligible based on patient's age to complete this topic Procedures Procedure Name Priority Date/Time Associated Diagnosis Comments COLONOSCOPY Routine 10/03/2019 from Last 3 Months or Most Recently Relevant to Health Maintenance Results * COLONOSCOPY (10/03/2019) us Ricardo Clarke DO PROCEDURE/MINOR SURGICAL ORDERA BLES Final Result from Last 3 Months or Most Recently Relevant to Health Maintenance [facility] Care Teams Fermenting Cellar Dropper Relationship Specialty Start Date End Date Jorge Agustin DO [address] [place] [address] [place] [address] PCP - General Internal Medicine 09/07/16 Idalia Lipscomb APRN, OBIEE OBIA SOLUTION ARCHITECT [address] [place] [address] [place] [address] Nurse Practitioner Advanced Practice Nurse 09/07/16
--- OUTSIDE RECORDS SUMMARY | 2025-04-30 06:30 | XMS_ITS | Encounter Summary ---
Author Organization [facility] Address [address] [facility] [address] [place] [address] Care Team Providers Care Carton Making Machine Operator Name Role Phone Prasad Bose MD Primary Care Provider [phone] Jorge Agustin DO Primary Care Provider [phone] Ricardo Clarke DO Unavailable [phone] Iban Armenta MD Unavailable [phone] Encounter Details Date Type Department Care Team (Late st Contact Info) Description 02/01/2017 Orders Only [facility] ProviderCasi MD [address] [place] [address] Social History Tobacco Use Types Packs/Day Years Used Date Smoking Tobacco: Never Assessed Sex and Gender Information Value Date Recorded Sex Assigned at Not on file 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 Historical Provider [...] documented as of this encounter Care Teams Carton Making Machine Operator Relationship Specialty Start Date End Date Prasad Bose MD PCP - General 01/24/17 06/07/17 Jorge Agustin DO PCP - General Internal Medicine 06/08/17 Ricardo Clarke DO Consulting Physician Gastroenterology 08/27/19 Iban Armenta MD [address] [facility] [address] [place] [address] [place] [address] Surgeon Orthopedic Surgery 04/01/25 documented as of this encounter
--- OUTSIDE RECORDS SUMMARY | 2025-04-30 06:30 | XMS_ITS | Clinical Summary ---
Author Organization [facility] Address [address] [place] [address] Care Team Providers Care Nurse Transplant Name Role Phone Jorge Agustin DO Primary Care Provider [phone] Source Comments [facility],non-owned Affiliates and Associated Physician Practices is amultiple site organization consisting of ambulatory clinics and hospital sitesin [place], [place], [place] and [place]. This disclosure is being madepursuant to the Care Everywhere program and may not contain all information available regarding this patient. Last updated 18.[facility] Allergies No known active allergies Immunizations Immunization Administration Dates Next Due INFLUENZA VACCINE, HIGH-DOSE , QUADR. 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 Gender Identity Not on file Sexual Orientation Not on file Plan of Treatment Health Maintenance Due Date Last Done Comments COLOGUARD (AGES 45-75) - COL ON CA SCREENING 1950 COLON MONITORING 1950 COLONOSCOPY - COLON CA SCREENING 1950 CT COLONOGRAPHY - COLON CA SCREENING 1950 Colorectal Cancer Screening 1950 FIT - COLON CA SCREENING 1950 FLEX SIG - COLON CA SCREENING 1950 LIPID TESTING 1950 HEPATITIS C SCREENING 02/26/1968 DTAP/TDAP/TD VACCINES (1 - Tdap) 1969 PNEUMOCOCCAL VACCINE 50+ (1 of 1 - PCV) 2000 ZOSTER VACCINE (1 of 2) 2000 COVID-19 VACCINE (1 - 2024-2 5 season) 2024 DEPRESSION SCREENING 10/23/2024 Respiratory Syncytial Virus (RSV) Vaccine Pt: or over 60 yrs (1 - 1-dose 75+ series) 2025 INFLUENZA VACCINE (Season Ended) 2025 09/09/20 17 HEPATITIS B VACCINE Aged Out No longe r eligible based on patient's age to complete this topic HIB VACCINE Aged Out No longer eligi ble based on patient's age to complete this topic HPV VACCINE Aged Out No longer eligi ble based on patient's age to complete this topic MENINGOCOCCAL (Group B) VACC INE SHARED DECISION-MAKING Aged Out No longer eligibl e based on patient's age to complete this topic MENINGOCOCCAL GROUPS A/C/Y/W VACCINE Aged Out No longer eligible b ased on patient's age to complete this topic Insurance [employer] Care Teams Nurse Transplant Relationship Specialty Start Date End Date Jorge Agustin DO PCP - General Internal Medicine 09/09/17
--- NOTE | 2025-04-30 06:35 | ECG_ITS ---
Test Date: 2025-04-30 06:38:34 Measurements Intervals [place] Rate: 78 P: 269 HI: 137 QRS: -20 QRSD: 210 T: 79 QT: 468 QTc: 535 Interpretive Statements JUNCTIONAL RHYTHM LEFT BUNDLE BRANCH BLOCK [120+ ms QRS DURATION, 80+ ms Q/S IN V1/V2, 85+ ms R IN I/aVL/V5/V6] ABNORMAL ECG No previous ECG available for comparison Electronically Signed On 04-30-2025 07:54:51 CDT by Rodrigue Nicholas M.D.
[2025-04-30 06:55] LABS: Hematocrit 31.9 % (42.0-52.0); Hemoglobin 10.2 g/dL (14.0-18.0); Immature Granulocyte Percent A 0.8 % (0-0.5); Lymphocytes Absolute Auto 2.14 K/mm3 (0.9-3.2); Mean Corpuscular HGB Conc 32.0 g/dl (32-36); Mean Corpuscular Hemoglobin 30.3 pg (26-34); Mean Corpuscular Volume 94.7 fl (80-100); Nucleated Red Blood Cells Absolute Auto 0.000 K/mm3 (0.0-0.012); Nucleated Red Blood Cells Perc 0.0 % (0.0-0.2); Platelet Count Result 328 k/mm3 (150-375); Red Blood Count 3.37 M/mm3 (4.6-6.20); White Blood Count 7.7 K/mm3 (4.5-10.0)
[2025-04-30 07:09] LABS: Alanine Aminotransferase 24 U/L (6-50); Albumin Level 3.9 g/dL (3.5-5.1); Alkaline Phosphatase 87 U/L (38-126); Anion Gap 10 mmol/L (4-12); Aspartate Amino Transferase 24 U/L (17-59); Bilirubin,Total 0.9 mg/dL (0.2-1.3); Blood Urea Nitrogen 40 mg/dL (9-20); Calcium 9.6 mg/dL (8.4-10.2); Carbon Dioxide 23 mmol/L (22-30); Chloride 102 mmol/L (98-107); Estimated CRCL calculation 31 ml/min; Estimated Glomerular Filt Rate 42; Glucose 113 mg/dL (65-110); Potassium 4.2 mmol/L (3.4-5.0); Sodium 135 mmol/L (137-145); Total Protein 7.3 g/dL (6.3-8.2)
--- OUTSIDE RECORDS SUMMARY | 2025-04-30 07:18 | XMS_ITS | Clinical Summary ---
Author Organization [facility] Address [address] [place] [address] Care Team Providers Care Insurance Claims Specialist Name Role Phone Jorge Agustin DO Primary Care Provider [phone] Source Comments [facility],non-owned Affiliates and Associated Physician Practices is amultiple site organization consisting of ambulatory clinics and hospital sitesin [place], [place], [place] and [place]. This disclosure is being madepursuant to the Care Everywhere program and may not contain all information available regarding this patient. Last updated 18.[facility] Allergies No known active allergies Immunizations Immunization Administration Dates Next Due INFLUENZA VACCINE, HIGH-DOSE , QUADR. 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
--- OUTSIDE RECORDS SUMMARY | 2025-04-30 07:18 | XMS_ITS | Clinical Summary ---
Author Organization [facility] [address] Address [address] [place] [address] Care Team Providers Care Manager Retail Name Role Phone Jorge Agustin DO Primary Care Provider [phone] Ricardo Clarke DO Unavailable [phone] Iban Armenta MD Unavailable [phone] Allergies No known active allergies Medications sildenafiL [...] Description 04/29/2025 1:30 PM CDT Office Visit [facility] Medical [facility] [address] [place] [address] Olya Winkler PA Acute pain of left shoulder (Primary Dx) 04/22/2025 2:35 PM CDT Ancillary Procedure [facility] Imaging at [address] [address] Acute pain of left shoulder 04/22/2025 2:15 PM CDT Office Visit [facility] Con[facility]ient Care at [address] [address] Britta Johnston NP Acute pain of left shoulder (Primary Dx) 04/22/2025 Results Follow-Up [facility] at [address] [address] Britta Johnston NP XR Shoulder Left 2+ Vw 04/17/2025 2:00 PM CDT Office Visit [facility] Cardiology [address] [place] [address] Jessica Dubose NP Labile hypertension; Paroxysmal atrial fibrillation (HCC); Lipid screening 04/17/2025 11:00 AM CDT Telemedicine [facility] [address] [place] [address] [address] [place] [address] Ping Friedman NP Aftercare following right knee joint replacement surgery (Primary Dx) 04/03/2025 Telephone [facility] [address] [facility] [address] [place] [address] Iban Armenta MD Post-op Problem 03/31/2025 11:25 AM CDT - 03/31/2025 1:55 PM CDT Surgery [facility] Operating Room [address] [place] [address] Iban Armenta MD Right Total Knee Arthroplasty- Robotic, 03/31/2025 10:20 AM CDT Anesthesia Event [facility] Operating Room 1 [place] [address] Yaniv Chandler DO Reynolds, Stefano Wagner MD 03/31/2025 8:41 AM CDT - 04/01/2025 2:07 PM CDT Hospital Encounter [facility] Surgery Care 1 [place] [address] Iban Armenta MD Primary osteoarthritis of right knee Discharge Disposition: Discharge to home or self care 03/28/2025 Documentation [facility] Medical [facility] [address] [place] [address] Ifrah Padilla MA Surgical Clearance 03/06/2025 9:30 AM CDT Office Visit [facility] Cardiology [address] [place] [address] Jessica Dubose NP Pre-operative exam (Primary Dx); Chronic anticoagulation 03/04/2025 7:25 AM CDT - 03/04/2025 11:59 PM CDT Hospital Encounter [facility] Cardiology 1 [place] [address] Pre-operative exam Discharge Disposition: Discharge to home or self care 03/04/2025 7:25 AM CDT Lab [address] [address] Pre-operative exam 02/25/2025 Telephone [facility] Cardiology [address] [place] [address] [address] [place] [address] Gil Loza MD 02/07/2025 Telephone [facility] [address] [place] [address] [address] [place] [address] Iban Armenta MD 02/07/2025 Telephone [facility] Cardiology [address] [place] [address] Jessica Dubose NP 02/05/2025 3:10 PM CDT Office Visit [facility] Cardiology [address] [place] [address] Essential hypertension (Primary Dx) 02/05/2025 Telephone [facility] Medicine [address] [place] [address] Iban Armenta MD 01/30/2025 Telephone [facility] Medical Group Cardiology [address] [place] [address] Adelaida Sevilla MA 01/29/2025 Telephone [facility] Orthopedics and Sports Medicine [address] [facility] [address] [place] [address] Iban Armenta MD from Last [...] Comments Hx Other Medical Emphysema; Comm ents: [facility] 12/04/2014 - Hx Other Medical Neuropathy- fee t; Comments: [facility] 12/04/2014 - Anemia Anemia; Comments : [facility] 12/04/2014 - Hepatitis C virus infection Hepa titis C; Comments: [facility] 12/04/2014 - patient states he has taken the medication Hx Other Medical 2006 Left hip revisi on; Comments: [facility] 12/04/2014 - Hypertension Cardiomyopathy (HCC) Arrhythmia Atrial [...] on file 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 Gender Identity Not on file Sexual Orientation [...] history exists Medical Devices Implanted Type Area Belt Worker Device Identifier Shelf Expiration Date Model / Serial / Lot [employer] Tibial Baseplate Knee Porous Fixed Attune Affixium Size 6 Titanium [id number] - [id number] Implanted:Qty: 1 on 03/31/2025 by Iban Armenta MD at [facility] Right: Knee [employer] [id number] 02/19/2034 [id number] / / [id number] [employer] Attune Cruciate Retain Cementless Knee Right 6 Component Femoral [id number] - [id number] Implanted:Qty: 1 on 03/31/2025 by Iban Armenta MD at [facility] Right: Knee [employer] [id number] 12/20/2034 [id number] / / [id number] [employer] Insert Tibial Attune Right Medial Stabilized Sz 6 6mm Fixed Bearing Polyethylene [id number] - [id number] Implanted:Qty: 1 on 03/31/2025 by Iban Armenta MD at [facility] Right: Knee [employer] [id number] 12/20/2032 [id number] / / [id number] Procedures Procedure Name Priority Date/Time Associated Diagnosis [...] - Robotic, Depuy- Attune , Velys, Cooling Unit-[facility] Care, 1 Liter Beta Rinse, Pt [...] Catherine Cooper M.D. AT T: Report ID: [id number] Reading Location: [id number] Procedure Note Catherine Cooper MD - 04/22/2025 [...] Catherine Cooper M.D. AT T: Report ID: [id number] Reading Location: [id number] Britta Johnston NP IMG XR PROCEDURES Final [...] [facility] Department [place] [address] * (ABNORMAL) CBC without differential (04/01/2025 4:22 [...] [address] [facility] Department of [employer] [address] * Basic metabolic panel (04/01/2025 4:22 AM [...] [facility] LAB BLOOD ORDERABLES Final Result [facility] ([place]) 1 [facility] Department [place] [employer] [place] [address] * ECG 12 lead (03/31/2025 6:19 PM CDT) 03/31/2025 6:19 PM CDT Narrative [facility] - 04/01/2025 1:20 PM CDT Vent Rate: 99 bpm RR Interval: 604 msec UT Interval: 0 msec QRS Duration: 190 msec QT Interval: 453 msec QTC Interval: 509 msec P-R-T [place]: [address] - -10 - 87 degrees IMPRESSION: ATRIAL FIBRILLATION WITH ABERRANT CONDUCTION OR VENTRICULAR PREMATURE COMPLEXES LEFT BUNDLE BRANCH BLOCK [120+ ms QRS DURATION, 80+ ms Q/S IN V1/V2, 85+ ms R IN I/aVL/V5/V6] ABNORMAL ECG Compared to prior EKG atrial fibrillation has replaced sinus rhythm Electronically Signed By: Esa Salinas MD [facility] us Iban Armenta MD ECG ORDERABLES Final Re sult [facility] * POCT glucose (03/31/2025 6:04 PM CDT) Glucose, POC 156 70 - 199 mg/dL Blood 03/31/2025 6:04 PM CDT 03/31/2025 6:04 PM CDT us Iban Armenta MD LAB POCT ORDERABLES - DE VICE Final Result [facility] [address] [place] [address] Department [place] [address] * Surgical pathology (03/31/2025 1:47 PM CDT) Tissue (Bone Fragment(s),) 03/31/2025 11:16 AM CDT Narrative PATHOLOGY [facility] - 04/02/2025 1:38 PM CDT EPIC results best viewed via link to PDF [facility] Department of Pathology [address] [place] [id number] Note to Patients: This report may contain [...] Final Report Patient Name: BERNARDA GOODSON Address: [address] [place] [address] Gender: M : 1950 (Age: 75) Service: Surgery Location: [facility] Hospital #: [id number] Patient Type: [facility] OP in bed Taken: 03/31/2025 Received: 03/31/2025 [...] determined by the Surgical Pathology Department at [facility] as part of an ongoing quality control associate program and in compliance with federally mandated [...] characteristics determined by the Surgical Pathology Department [facility]. It has not been cleared or approved by the U. S. Food and Drug Administration. Note for decalcified specimens: This assay has not been validated on decalcified tissues. Results should be interpreted with caution given the possibility of false negativity on decalcified specimens Iban Armenta MD LAB PATHOLOGY ORDERABLES Final Result Performing Organization Address City/State/[facility] Co de Phone Number PATHOLOGY [facility] ([address] [address] * XR Knee Right 1 or 2 [...] Elieser Paiz M.D. AM: AM Report ID: [id number] Reading Location: [id number] Procedure Note Elieser Paiz MD - 03/31/2025 [...] Elieser Paiz M.D. AM: AM Report ID: [id number] Reading Location: [id number] Sharifa GONCALVES IMG XR PROCEDURES Fin al Result * Spinal Block (03/31/2025 10:44 AM CDT) Narrative Endy Meadows CRNA - 03/31/2025 10:44 AM CDT Endy Meadows CRNA 03/31/2025 10:45 AM Spinal Block Patient location: OR Reason for block: primary anesthetic Staff: Placed by: SPICE GRINDER:Endy Meadows CRNA Procedure prep: Preprocedure checklist: patient [...] tolerated procedure well with no complications Result [facility] Yaniv Chandler DO ANESTHESIA ORDERABL ES [...] ORDERABLES Fin al Result Performing Organization Address [facility] de Phone Number [facility] ([place]) [address] [facility] Department [place] [address] * Protime-INR (03/31/2025 9:29 AM CDT) PT [...] ORDERABLES Fin al Result Performing Organization Address [facility] Co de Phone Number [facility] [address] Department [place] [address] * ECG 12 lead (03/04/2025 8:03 AM CDT) 03/04/2025 8:04 AM CDT Narrative [facility] - 03/04/2025 8:24 AM CDT Vent Rate: 65 bpm RR Interval: 920 msec UT Interval: 116 msec QRS Duration: 214 msec QT Interval: 544 msec QTC Interval: 555 msec P-R-T [place]: 183 - 61 - 56 degrees IMPRESSION: ECTOPIC ATRIAL RHYTHM WITH SHORT UT INTERVAL LEFT BUNDLE BRANCH BLOCK [120+ ms QRS DURATION, 80+ ms Q/S IN V1/V2, 85+ ms R IN I/aVL/V5/V6] PROLONGED QT INTERVAL CRITICAL TEST RESULT Electronically Signed By: Babar Martínez MD us Iban Armenta MD ECG ORDERABLES Final Re sult [facility] * eGFR (03/04/2025 7:42 AM CDT) eGFR [...] BLOOD ORDERABLES Fin al Result [facility] ([place]) [address] [facility] Department [place] [address] * Differential, auto (03/04/2025 7:42 AM CDT) Neutrophil abs 5.16 1.50 - 6.50 K/cumm Imm gran abs 0.03 0.00 - 0.10 K/cumm [facility]) Lymphocyte abs 1.35 0.80 - 3.30 K/cumm [facility]) Monocyte abs 0.78 0.20 - 0.80 K/cumm [facility] ([place]) Eosinophil abs 0.11 0.00 - 0.50 K/cumm [facility] ([place]) Basophil abs 0.04 0.00 - 0.10 K/cumm [facility] ([place]) Neutrophil pct 69.1 % [facility] ([place]) Comment: Interpretive Data Percent cell count reference ranges are not reported, since discordance with absolute values may lead to misinterpretation of CBC data. Current Interpretive Data was last revised on 2018. Imm gran pct 0.4 % [facility] Comment: Interpretive Data Percent cell count reference ranges are not reported, since discordance with absolute values may lead to misinterpretation of CBC data. Current Interpretive Data was last revised on 2018. Lymphocyte pct 18.1 % [facility] Comment: Interpretive Data Percent cell count reference ranges are not reported, since discordance with absolute values may lead to misinterpretation of CBC data. Current Interpretive Data was last revised on 2018. Monocyte pct 10.4 % [facility] Comment: Interpretive Data Percent cell count reference ranges are not reported, since discordance with absolute values may lead to misinterpretation of CBC data. Current Interpretive Data was last revised on 2018. Eosinophil pct 1.5 % [facility] Comment: Interpretive Data Percent cell count reference [...] [facility] Department [place] [address] * (ABNORMAL) Urinalysis reflex to microscopic and [...] tendency for uric acid stone formation. Source: [facility] [employer] Current Interpretive Data was last revised on [...] [facility] Department [place] [address] * (ABNORMAL) CBC with auto differential (03/04/2025 [...] Fin al Result [facility] ([place]) 1 [facility] [place] [address] * (ABNORMAL) Urinalysis, microscopic only (03/04/2025 7:42 AM CDT) WBC, ur 0-5 0 - 5 /HPF RBC, ur 0-2 0 - 2 /HPF [facility] ([place]) Epithelial cells, squamous, ur 1-5 0 - 5 /HPF [facility] ([place]) Mucous, ur Present(A) [facility] ([place]) Hyaline casts, ur 6-10 0 - 10 /LPF [facility] ([place]) Culture Reflex Comment Reflex conditions for urine culture (WBC >10) not met. [facility] ([place] Urine 03/04/2025 7:42 AM CDT 03/04/2025 8:37 AM CDT Iban Armenta MD LAB URINE ORDERABLES Fin al Result Performing Organization Address [facility] de Phone Number [facility] [address] [place] [address] [place] [address] * (ABNORMAL) Hemoglobin A1c (03/04/2025 7:42 AM CDT) Pathologist [facility] Hgb A1C 5.8(H) 4.0 - 5.6 % Estimated Average Glucose 120 mg/dL [facility] Comment: The ADA recommends reporting an estimated Average Glucose (eAG) with all Hemoglobin A1c results using the equation derived from a study of 507 normal and diabetic adults. Minority populations were underrepresented and children were not included. (Diabetes Care 31:0418-6022, 2008). The eAG is not equivalent to a fasting glucose. Blood 03/04/2025 7:42 AM CDT 03/04/2025 8:41 AM CDT Iban Armenta MD LAB BLOOD ORDERABLES Fin al Result Performing Organization Address [facility] Co de Phone Number [facility] [address] [facility] [place] [address] * Comprehensive metabolic panel (03/04/2025 7:42 AM [...] MD LAB BLOOD ORDERABLES Fin al Result [facility] ([place]) [address] [facility] Department [place] [address] from Last 3 Months Insurance Advance Directives For more information, please contact: [phone] * Full Code (Latest Code Status on File) Date Activated Date Inactivated Comments 03/31/2025 1:29 PM 04/01/2025 6:12 PM Care Teams Manager Retail Relationship Specialty Start Date End Date Jorge Agustin DO PCP - General Internal Medicine 06/08/17 Ricardo Clarke DO Consulting Physician Gastroenterology 08/27/19 Iban Armenta MD [address] [facility] [address] [place] [id number] Surgeon Orthopedic Surgery 04/01/25
--- OUTSIDE RECORDS SUMMARY | 2025-04-30 07:19 | XMS_ITS | Clinical Summary ---
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 Pulse 84 09/07/2016 9:13 AM WALNUT DEHYDRATOR OPERATOR Temperature 36.1 C (97 F) 09/07/2016 9:13 AM WALNUT DEHYDRATOR OPERATOR Respiratory Rate 14 09/07/2016 9:13 AM WALNUT DEHYDRATOR OPERATOR Oxygen Saturation 96% 09/07/2016 9:13 AM WALNUT DEHYDRATOR OPERATOR Inhaled Oxygen Concentration - - Weight 78.5 kg (173 lb) 11/25/2016 10:05 AM WALNUT DEHYDRATOR OPERATOR Height 177.8 cm (5' 10) 11/25/2016 10:05 AM WALNUT DEHYDRATOR OPERATOR Body Mass Index 24.82 11/25/2016 10:05 AM WALNUT DEHYDRATOR OPERATOR Plan of Treatment Health Maintenance Due Date [...] Most Recently Relevant to Health Maintenance Insurance [facility] Care Teams Healthcare Or Medical Relationship Specialty Start Date End Date Jorge Agustin DO [address] [place] [address] [place] [address] PCP - General Internal Medicine 09/07/16 Idalia Lipscomb APRN, FLASH RANGING CREWMEMBER [address] [place] [address] [place] [address] Nurse Practitioner Advanced Practice Nurse 09/07/16
--- OUTSIDE RECORDS SUMMARY | 2025-04-30 07:19 | XMS_ITS | Encounter Summary ---
Author Organization [facility] Address [address] [address] [place] [address] Care Team Providers Care Hay Sorter Name Role Phone Prasad Bose MD Primary Care Provider [phone] Jorge Agustin DO Primary Care Provider [phone] Ricardo Clarke DO Unavailable [phone] Iban Armenta MD Unavailable [phone] Encounter Details Date Type Department Care Team (Late st Contact Info) Description 02/01/2017 Orders Only [facility] ProviderCasi MD [address] [place] [address] Social History Tobacco Use Types Packs/Day Years Used Date Smoking Tobacco: Never Assessed Sex and Gender Information Value Date Recorded Sex Assigned at Not on file 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
--- OUTSIDE RECORDS SUMMARY | 2025-04-30 07:19 | XMS_ITS | Encounter Summary ---
Author Organization [facility] Address [address] [place] [address] Care Team Providers Care Electrical Assembler Name Role Phone Jorge Agustin DO Primary Care Provider [phone]- [phone] Ricardo Clarke DO Unavailable [phone] Iban Armenta MD Unavailable [phone] Encounter Details Date Type Department Care Team (Late st Contact Info) Description 04/22/2025 Results Follow-Up [facility] Convenient Care at [address] [address] Britta Johnston, PLASTICS FABRICATOR AND ASSEMBLER [address] [place] [address] [address] [place] [address] XR Shoulder Left 2+ Vw [...] on file 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
--- OUTSIDE RECORDS SUMMARY | 2025-04-30 07:19 | XMS_ITS | Referral Summary ---
Author Organization [facility] [address] Address [address] [place] [address] Care Team Providers Care Health Care Law Specialist Name Role Phone Jorge Agustin DO Primary Care Provider + [phone] Ricardo Clarke DO Unavailable [phone] Iban Armenta MD Unavailable [phone] Encounters Date Type Department Care Team Description 04/29/2025 1:30 PM CDT Office Visit [facility] Orthopedic and Sports Medicine [address] [place] [address] Olya Winkler PA Acute pain of left shoulder (Primary Dx) 04/22/2025 Results Follow-Up [facility] Convenient Care at [address] [address] Britta Johnston NP XR Shoulder Left 2+ Vw 04/22/2025 2:35 PM CDT Ancillary Procedure [facility] Imaging at [address] [address] Acute pain of left shoulder 04/22/2025 2:15 PM CDT Office Visit [facility] Convenient Care at [address] [address] Britta Johnston, OSITO Acute pain of left shoulder (Primary Dx) 04/17/2025 2:00 PM CDT Office Visit [facility] Medical [facility] [address] [place] [address] Jessica Dubose NP Labile hypertension; Paroxysmal atrial fibrillation (HCC); Lipid screening 04/17/2025 11:00 AM CDT Telemedicine [facility] Orthopedics and Sports Medicine [address] [place] [address] [address] [place] [address] Ping Friedman NP Aftercare following right knee joint replacement surgery (Primary Dx) 04/03/2025 Telephone [facility] Orthopedics and Sports Medicine [address] [place] [address] [address] [place] [address] Iban Armenta MD Post-op Problem 03/31/2025 8:41 AM CDT - 04/01/2025 2:07 PM CDT Hospital Encounter [facility] Surgery Care [address] [place] [address] Iban Armenta MD Primary osteoarthritis of right knee Discharge Disposition: Discharge to home or self care 03/31/2025 11:25 AM CDT - 03/31/2025 1:55 PM CDT Surgery [facility] Operating Room 1 [place] [address] Iban Armenta MD Right Total Knee Arthroplasty- Robotic, 03/31/2025 10:20 AM CDT Anesthesia Event [facility] Operating Room [address] [place] [address] Yaniv Chandler DO Reynolds, Ethan Emerson, MD 03/28/2025 Documentation [facility] Orthopedics and Sports Medicine [address] [place] [address] [address] [address] Ifrah Padilla MA Surgical Clearance 03/06/2025 9:30 AM CDT Office Visit [facility] Cardiology [address] [facility] [address] [place] [address] Jessica Dubose NP Pre-operative exam (Primary Dx); Chronic anticoagulation 03/04/2025 7:25 AM CDT - 03/04/2025 11:59 PM CDT Hospital Encounter [facility] Cardiology [address] [place] [address] Pre-operative exam Discharge Disposition: Discharge to home or self care 03/04/2025 7:25 AM CDT Lab [address] [address] Pre-operative exam 02/25/2025 Telephone [facility] Cardiology [address] [place] [address] Gil Loza MD 02/07/2025 Telephone [facility] Orthopedics and Sports Medicine [address] [facility] [address] [place] [address] Iban Armenta MD 02/07/2025 Telephone [facility] Cardiology [address] [place] [address] [place] [address] Jessica Dubose NP 02/05/2025 3:10 PM CDT Office Visit [facility] Cardiology [address] [place] [address] [place] [address] Essential hypertension (Primary Dx) 02/05/2025 Telephone [facility] Orthopedics and Sports Medicine [address] [place] [address] [address] [place] [address] Iban Armenta MD 01/30/2025 Telephone [facility] Cardiology [address] [place] [address] [place] [address] Adelaida Sevilla MA 01/29/2025 Telephone [facility] Orthopedics and Sports Medicine [address] [place] [address] [address] [address] Iban Armenta MD from Last 3 Months [...] on file 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 Gender Identity Not on file Sexual Orientation [...] on file Medical Devices Implanted Type Area Grey Tender Device Identifier Shelf Expiration Date Model / Serial / Lot [employer] Tibial Baseplate Knee Porous Fixed Attune Affixium Size 6 Titanium [id number] - [id number] Implanted:Qty: 1 on 03/31/2025 by Iban Armenta MD at [facility] Right: Knee [employer] [id number] 02/19/2034 [id number] / / [id number] [employer] Attune Cruciate Retain Cementless Knee Right 6 Component Femoral [id number] - [id number] Implanted:Qty: 1 on 03/31/2025 by Iban Armenta MD at [facility] Right: Knee [employer] [id number] 12/20/2034 [id number] / / [id number] [employer] Insert Tibial Attune Right Medial Stabilized Sz 6 6mm Fixed Bearing Polyethylene [id number] - [id number] Implanted:Qty: 1 on 03/31/2025 by Iban Armenta MD at [facility] Right: Knee [employer] [id number] 12/20/2032 [id number] / / [id number] Procedures Procedure Name Priority Date/Time Associated Diagnosis [...] - Robotic, Depuy- Attune , Velys, Cooling Unit-[facility] Care, 1 Liter Beta Rinse, Pt [...] 6:29 PM - Electronically signed by Catherine Cooepr M.D. AT T: Report ID: [id number] Reading Location: [id number] Procedure Note Catherine Cooper MD - 04/22/2025 [...] Catherine Cooper M.D. AT T: Report ID: [id number] Reading Location: [place] [address] Britta Johnston COMPUTER PROGRAMMER IMG XR PROCEDURES Final Re sult * (ABNORMAL) POCT lipid panel (04/17/2025 2:02 PM CDT) Pathologist [facility] Cholesterol, POC 148 <200 MG/DL HDL, POC [...] * eGFR (04/01/2025 4:22 AM CDT) Pathologist [facility] eGFR 75 >=60 mL/min/1. 73 m2 Comment: [...] ORDERABLES Final Result [facility] ([place]) [address] [facility] [place] [address] * (ABNORMAL) CBC without differential (04/01/2025 4:22 [...] ORDERABLES Final Result [facility] [place] [address] * Basic metabolic panel (04/01/2025 4:22 AM [...] BLOOD ORDERABLES Final Result Performing Organization Address City/[facility]/ZIP Co de Phone Number [facility] ([place]) [address] [facility] [place] [address] * ECG 12 lead (03/31/2025 6:19 PM CDT) 03/31/2025 6:19 PM CDT Narrative [facility] - 04/01/2025 1:20 PM CDT Vent Rate: 99 bpm RR Interval: 604 msec OK Interval: 0 msec QRS Duration: 190 msec QT Interval: 453 msec QTC Interval: 509 msec P-R-T Taylor: 33949 - -10 - 87 degrees IMPRESSION: ATRIAL FIBRILLATION WITH ABERRANT CONDUCTION OR VENTRICULAR PREMATURE COMPLEXES LEFT BUNDLE BRANCH BLOCK [120+ ms QRS DURATION, 80+ ms Q/S IN V1/V2, 85+ ms R IN I/aVL/V5/V6] ABNORMAL ECG Compared to prior EKG atrial fibrillation has replaced sinus rhythm Electronically Signed By: Esa Salinas MD [facility] Iban Armenta MD ECG ORDERABLES Final Re sult Performing Organization Address [facility] Co de Phone Number [facility] [employer] [facility] * POCT glucose (03/31/2025 6:04 PM CDT) Glucose, POC 156 70 - 199 mg/dL Blood 03/31/2025 6:04 PM CDT 03/31/2025 6:04 PM CDT Iban Armenta MD LAB POCT ORDERABLES - DE VICE Final Result Performing Organization Address [facility]/ZIP Co de Phone Number [facility] ([place]) [address] [facility] [place] [address] * Surgical pathology (03/31/2025 1:47 PM CDT) Tissue (Bone Fragment(s),) 03/31/2025 11:16 AM CDT Narrative [facility] ([place]) - 04/02/2025 1:38 PM CDT EPIC results best viewed via link to PDF [facility] Department of Pathology [address] [place] [address] Note to Patients: This report may contain [...] Final Report Patient Name: BERNARDA GOODSON Address: [address] [place] [address] Gender: M : 1950 (Age: 75) Service: Surgery Location: [facility] Hospital #: [id number] Patient Type: [facility] OP in bed Taken: 03/31/2025 Received: 03/31/2025 [...] determined by the Surgical Pathology Department at [facility] as part of an ongoing air quality chemist program and in compliance with federally mandated [...] determined by the Surgical Pathology Department [facility]. It has not been cleared or approved by the U. S. Food and Drug Administration. Note for decalcified specimens: This assay has not been validated on decalcified tissues. Results should be interpreted with caution given the possibility of false negativity on decalcified specimens Iban Armenta MD LAB PATHOLOGY ORDERABLES Final Result Performing Organization Address City/State/[facility] Co de Phone Number PATHOLOGY [address] [address] * XR Knee Right 1 or 2 [...] Elieser Paiz M.D. AM: AM Report ID: [id number] Reading Location: [id number] Procedure Note Elieser Paiz MD - 03/31/2025 [...] Elieser Paiz M.D. AM: AM Report ID: [id number] Reading Location: [place] [address] Sharifa GONCALVES IMG XR PROCEDURES Fin al [...] 46(H) 28 - 38 sec [facility] ([place]) Comment: Interpretive Data Heparin therapeutic range: 66.0 - 100.0 seconds. Range based on correlation with therapeutic heparin activity range of 0.3 - 0.7 Units/mL. Current interpretive data was last revised on 2023. Blood 03/31/2025 9:29 AM CDT 03/31/2025 9:31 AM CDT Iban Armenta MD LAB BLOOD ORDERABLES Fin al Result [facility] [place] [address] * Protime-INR (03/31/2025 9:29 AM CDT) PT 10.5 9.7 - 13.0 sec [facility] ([place]) INR 0.97 0.90 - 1.20 [facility] [...] ORDERABLES Fin al Result [facility]) [address] [facility] [place] [address] * ECG 12 lead (03/04/2025 8:03 AM CDT) 03/04/2025 8:04 AM CDT Narrative [facility] - 03/04/2025 8:24 AM CDT Vent Rate: 65 bpm RR Interval: 920 msec OK Interval: 116 msec QRS Duration: 214 msec QT Interval: 544 msec QTC Interval: 555 msec P-R-T Taylor: 183 - 61 - 56 degrees IMPRESSION: ECTOPIC ATRIAL RHYTHM WITH SHORT OK INTERVAL LEFT BUNDLE BRANCH BLOCK [120+ ms QRS DURATION, 80+ ms Q/S IN V1/V2, 85+ ms R IN I/aVL/V5/V6] PROLONGED QT INTERVAL CRITICAL TEST RESULT Electronically Signed By: Babar Martínez MD Iban Armenta MD ECG ORDERABLES Final Re sult [facility] [employer] [facility] * eGFR (03/04/2025 7:42 AM CDT) eGFR [...] LAB BLOOD ORDERABLES Fin al Result [facility] ([place]) [facility] [place] [address] * Differential, auto (03/04/2025 7:42 AM CDT) Neutrophil abs 5.16 1.50 - 6.50 K/cumm Imm gran abs 0.03 0.00 - 0.10 K/cumm [facility] ([place]) Lymphocyte abs 1.35 0.80 - 3.30 K/cumm [facility] ([place]) Monocyte abs 0.78 0.20 - 0.80 K/cumm [facility] ([place]) Eosinophil abs 0.11 0.00 - 0.50 K/cumm [facility] ([place]) Basophil abs 0.04 0.00 - 0.10 K/cumm [facility] ([place]) Neutrophil pct 69.1 % [facility] ([place]) Comment: Interpretive Data Percent cell count reference ranges are not reported, since discordance with absolute values may lead to misinterpretation of CBC data. Current Interpretive Data was last revised on 2018. Imm gran pct 0.4 % [facility] ([place]) Comment: Interpretive Data Percent cell count reference ranges are not reported, since discordance with absolute values may lead to misinterpretation of CBC data. Current Interpretive Data was last revised on 2018. Lymphocyte pct 18.1 % [facility] ([place]) Comment: Interpretive Data Percent cell count reference ranges are not reported, since discordance with absolute values may lead to misinterpretation of CBC data. Current Interpretive Data was last revised on 2018. Monocyte pct 10.4 % [facility] ([place]) Comment: Interpretive Data Percent cell count reference [...] BLOOD ORDERABLES Fin al Result [facility] ([place]) [facility] [place] [address] * (ABNORMAL) Urinalysis reflex to microscopic and [...] tendency for uric acid stone formation. Source: [facility] [employer] Current Interpretive Data was last revised on 2017 Protein, ur ql 1+(A) Negative [facility] ([place]) Glucose, ur ql Negative Negative [facility] ([place]) Ketones, ur Negative Negative [facility] ([place]) Bilirubin, ur Negative Negative [facility] ([place]) [...] ORDERABLES Final Result [facility] ([place]) [facility] [place] [address] * (ABNORMAL) CBC with auto differential (03/04/2025 [...] LAB BLOOD ORDERABLES Fin al Result [facility] ([place]) [address] [place] [address] * (ABNORMAL) Urinalysis, microscopic only (03/04/2025 7:42 AM CDT) WBC, ur 0-5 0 - 5 /HPF RBC, ur 0-2 0 - 2 /HPF [facility] ([place]) Epithelial cells, squamous, ur 1-5 0 - 5 /HPF [facility] ([place]) Mucous, ur Present(A) [facility] Hyaline casts, ur 6-10 0 - 10 /LPF [facility] ([place]) Culture Reflex Comment Reflex conditions for urine culture (WBC >10) not met. [facility] ([place]) Urine 03/04/2025 7:42 AM CDT 03/04/2025 8:37 AM CDT Iban Armenta MD LAB URINE ORDERABLES Fin al Result Performing Organization Address [facility] de Phone Number [facility] ([place]) 1 [place] [address] * (ABNORMAL) Hemoglobin A1c (03/04/2025 7:42 AM CDT) Hgb A1C 5.8(H) 4.0 - 5.6 % Estimated Average Glucose 120 mg/dL [facility] ([place]) Comment: The ADA recommends reporting an estimated Average Glucose (eAG) with all Hemoglobin A1c results using the equation derived from a study of 507 normal and diabetic adults. Minority populations were underrepresented and children were not included. (Diabetes Care 31:8834-0830, 2008). The eAG is not equivalent to a fasting glucose. Blood 03/04/2025 7:42 AM CDT 03/04/2025 8:41 AM CDT Iban Armenta MD LAB BLOOD ORDERABLES Fin al Result Performing Organization Address [facility] Co de Phone Number [facility] ([place]) 1 [facility] [place] [address] * Comprehensive metabolic panel (03/04/2025 7:42 AM [...] Fin al Result [facility] [place]) 1 [facility] [place] [id number] from Last 3 Months Insurance [facility] [id number] Advance Directives For more information, please contact: [phone] * Full Code (Latest Code Status on File) Date Activated Date Inactivated Comments 03/31/2025 1:29 PM 04/01/2025 6:12 PM Care Teams Health Care Law Specialist Relationship Specialty Start Date End Date Jorge Agustin DO PCP - General Internal Medicine 06/08/17 Ricardo Clarke DO Consulting Physician Gastroenterology 08/27/19 Iban Armenta MD [address] [place] [address] [place] [address] Surgeon Orthopedic Surgery 04/01/25
--- OUTSIDE RECORDS SUMMARY | 2025-04-30 07:19 | XMS_ITS | Encounter Summary ---
Author Organization [facility] Address [address] [facility] [address] [place] [address] Care Team Providers Care Freezer Laboratory Technician Name Role Phone Prasad Bose MD Primary Care Provider [phone] Jorge Agustin DO Primary Care Provider [phone] Ricardo Clarke DO Unavailable [phone] Iban Armenta MD Unavailable [phone] Encounter Details Date Type Department Care Team (Late st Contact Info) Description 01/27/2017 Orders Only [facility] ProviderCasi MD [address] [place] [address] Social History Tobacco Use Types Packs/Day Years Used Date Smoking Tobacco: Never Assessed Sex and Gender Information Value Date Recorded Sex Assigned at Not on file 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
--- OUTSIDE RECORDS SUMMARY | 2025-04-30 07:19 | XMS_ITS | Encounter Summary ---
Author Organization [facility] Healthcare Address [address] [place] [address] Care Team Providers Care Principal Bioinformatics Specialist Name Role Phone Jorge Agustin DO Primary Care Provider + [phone] Ricardo Clarke DO Unavailable [phone] Iban Armenta MD Unavailable [phone] Reason for Visit * Reason Comments Pain Encounter Details Date Type Department Care Team (Late st Contact Info) Description 04/29/2025 1:30 PM CDT Office Visit 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
[2025-04-30] MEDS: SODIUM CHLORIDE 0.9% IV 1,000 ML 999 ML IV CONT (07:35)
--- NOTE | 2025-04-30 07:38 | ED_ITS ---
HPI - General Adult General Chief complaint: Shortness of Breath/Dyspnea Stated complaint: SHORT OF BREATH HX A FIB Time Seen by Provider: 04/30/25 06:59 History of Present Illness HPI narrative: Patient is a 75-year-old male who presents the ER with shortness of breath. Sudden onset early in the night. No chest pain or heart palpitations. Has history of AFib. No fevers or chills or sweats. No productive cough. Denies wheezing. Speaks in full sentences but continues feels slightly dyspneic. No pain with deep breath. He is anticoagulated on Xarelto. Related Data Home Medications ?Medication ?Instructions ?Recorded ?Confirmed ?Last Taken ?Type losartan 100 mg tablet 100 mg PO DAILY 10/01/19 03/12/25 10/03/19 05:00 History rivaroxaban 20 mg tablet (Xarelto) 20 mg PO DAILY 04/20/22 03/12/25 Unknown History carvedilol 3.125 mg tablet 6.25 mg PO BID 04/21/23 03/12/25 Unknown History flecainide 100 mg tablet 100 mg PO Q12H 04/21/23 03/12/25 Unknown History amlodipine 5 mg tablet 10 mg PO DAILY 03/12/25 03/12/25 Unknown History Allergies Allergy/AdvReac Type Severity Reaction Status Date / Time No Known Allergies Allergy Mild Verified 01/23/25 14:25 Review of Systems 2 Review of Systems: All systems reviewed & are unremarkable except as noted in HPI and below Constitutional: Constitutional: Reports no additional constitutional complaints ENT: Reports system reviewed and no additional complaints, except as documented Cardiovascular: Cardiovascular: Reports no additional cardiovascular complaints Respiratory: Respiratory: Reports no additional respiratory complaints Gastrointestinal: Gastrointestinal: Reports no additional gastrointestinal complaints [facility] Past Medical History Medical History Erectile dysfunction Femur fracture 1975 Macular hole 2016 Hemorrhoids Osteoarthritis COPD (chronic obstructive pulmonary disease) Macular degeneration (senile) of retina Melanosis coli Chronic constipation Hypertriglyceridemia Atrial fibrillation Anticoagulant long-term use History of hepatitis C Hypertension Surgical History Surgical History H/O bone graft 2004 Joint replaced Hip 2003 H/O hernia repair H/O detached retina repair History of cataract surgery 2018 Hx of colonoscopy Hx of bilateral inguinal hernia repair History of left hip replacement Family History Family History Sibling Family history of malignant neoplasm Patient's brother is Mother Family history of congestive heart failure Patient's mother is Hypertension Dementia Respiratory care problem Father Patient's father is Acute myocardial infarction Diabetes mellitus Hypertension Other Cerebrovascular accident Family history of arthritis Family history of gout Social History Social History Social History: caffeine-daily Smoking packs per day: 1.5 Smoking cigarettes per day: 30.0 Years smoked: 20 Smoking pack-years: 30.00 Smoking status: Former smoker Smoking end date: 10/23/03 Alcohol intake: former Alcohol use details: quit drinking alcohol due to medications Substance use: former Do You Feel Safe in your Home?: Yes Lack of Transportation: No Lack of Food: Never True Current Housing: I Have Housing Concerned About Future Housing: No Difficulty Paying Gas/Electric Bills: No Difficulty Paying for Meds: No Currently Unemployed: No Education: Bachelor's Degree Difficulty w/ Childcare or Family Care: No Occupation/Education: occupation 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 HEAD: Normocephalic, atraumatic. EYES: PERRL and EOMI. ENT: Mucous membranes moist. CHEST: Clear to auscultation. No respiratory distress. HEART: Regular rate and rhythm. Normal peripheral pulses. EXTREMITIES: Normal range of motion. No edema. SKIN: Warm, dry, no rash. NEURO: Alert and oriented x3. PSYCH: Normal mood and affect. Course Course Emergency Course: Patient resting comfortably. Ambulatory without hypoxia. Given some IV fluid. Mildly dehydrated. No abnormal lung sounds. Vital Signs Vital signs: Vital Signs Temperature 97.5 F L 04/30/25 06:36 Pulse Rate 82 04/30/25 06:36 Respiratory Rate 24 H 04/30/25 06:36 Blood Pressure 93/68 L 04/30/25 06:36 Pulse Oximetry 100 04/30/25 06:36 Oxygen Delivery Room Air 04/30/25 06:36 Temperature 97.5 F L 04/30/25 06:36 Pulse Rate 81 04/30/25 06:40 Respiratory Rate 24 H 04/30/25 06:36 Blood Pressure 93/68 L 04/30/25 06:36 Pulse Oximetry 100 04/30/25 06:36 Oxygen Delivery Room Air 04/30/25 06:36 Medical Decision Making Vital Signs Vital Signs: Vital Signs Temperature 97.5 F L 04/30/25 06:36 Pulse Rate 82 04/30/25 06:36 Respiratory Rate 24 H 04/30/25 06:36 Blood Pressure 93/68 L 04/30/25 06:36 Pulse Oximetry 100 04/30/25 06:36 Oxygen Delivery Room Air 04/30/25 06:36 Temperature 97.5 F L 04/30/25 06:36 Pulse Rate 81 04/30/25 06:40 Respiratory Rate 24 H 04/30/25 06:36 Blood Pressure 93/68 L 04/30/25 06:36 Pulse Oximetry 100 04/30/25 06:36 Oxygen Delivery Room Air 04/30/25 06:36 Lab Data 04/30/25 06:43 04/30/25 06:43 Labs: Lab Results 04/30/25 Range/Units 06:43 WBC 7.7 (4.5-10.0) K/mm3 RBC 3.37 L (4.6-6.20) M/mm3 Hgb 10.2 L D (14.0-18.0) g/dL Hct 31.9 L (42.0-52.0) % MCV 94.7 (80-100) fl MCH 30.3 (26-34) pg MCHC 32.0 (32-36) g/dl RDW 13.8 (11.5-14.5) % Plt Count 328 (150-375) k/mm3 MPV 9.1 (7.4-10.4) fl Immature Gran % (Auto) 0.8 H (0-0.5) % Neut % (Auto) 58.3 (45.5-73.1) % Lymph % (Auto) 27.6 (18.3-44.2) % Sampson % (Auto) 10.9 H (2.6-8.5) % Eos % (Auto) 1.8 (0-4.4) % Baso % (Auto) 0.6 (0.2-1.2) % Lymph # (Auto) 2.14 (0.9-3.2) K/mm3 Sampson # (Auto) 0.8 H (0.1-0.6) K/mm3 Eos # (Auto) 0.1 (0-0.3) K/mm3 Baso # (Auto) 0.1 (0.0-0.1) K/mm3 Abs Immat Gran (auto) 0.06 H (0.00-0.031) K/mm3 Absolute Neuts (auto) 4.5 (1.3-6.7) K/mm3 Absolute Nucleated RBC 0.000 (0.0-0.012) K/mm3 Nucleated RBC % 0.0 (0.0-0.2) % Sodium 135 L (137-145) mmol/L Potassium 4.2 (3.4-5.0) mmol/L Chloride 102 (98-107) mmol/L Carbon Dioxide 23 (22-30) mmol/L Anion Gap 10 (4-12) mmol/L BUN 40 H D (9-20) mg/dL Creatinine 1.62 H (0.7-1.3) mg/dL Estim Creat Clear Calc 31 ml/min Estimated GFR 42 L (59 - ) Glucose 113 H (65-110) mg/dL Calcium 9.6 (8.4-10.2) mg/dL Total Bilirubin 0.9 (0.2-1.3) mg/dL AST 24 (17-59) U/L ALT 24 (6-50) U/L Alkaline Phosphatase 87 (38-126) U/L Total Protein 7.3 (6.3-8.2) g/dL Albumin 3.9 (3.5-5.1) g/dL Imaging Data Radiologist's impression: ITS Impressions Chest X-Ray 04/30/25 07:11 Impression: Possible COPD. No other acute abnormality seen. ECG Data EKG #1: ECG completion date: 04/30/25 ECG completion time: 06:38 EKG Interpretation: normal rate (78), non-specific ST changes, widened QRS and LBBB Discharge Plan Discharge Clinical Impression: Dehydration Patient Disposition: Home Condition: Stable Instructions: Dehydration (ED) Additional Instructions: Please return to the emergency department if you develop severe and persistent chest pain, difficulty breathing, dizziness, leg swelling or if you are coughing up blood as these can be signs of a medical emergency. Please call your doctor for a follow up appointment to determine the need for further testing. Patient Language: Romanian Prescriptions: No Action Xarelto 20 mg tablet 20 mg PO DAILY Rx Instructions: must administer with evening meal carvedilol 3.125 mg tablet 6.25 mg PO BID flecainide 100 mg tablet 100 mg PO Q12H amlodipine 5 mg tablet 10 mg PO DAILY losartan 100 mg Tablet 100 mg PO DAILY Follow-up/Referrals: Jorge Agustin DO [Primary Care Provider] - 1 Week
--- NOTE | 2025-04-30 09:47 | PC.NURSE ---
ambulated in [place] with staff and pulse ox did not drop below 99%, no s/s o distress or increased WOB noted
== END 2025-04-30 09:54 | disposition home or self-care (01) ==
PROVIDERS: Emergency Medicine; Emergency Provider Emergency Medicine; PCP Internal Medicine
DX: E86.0 Dehydration (principal); R94.31 Abnormal electrocardiogram [ECG] [EKG]; M19.90 Unspecified osteoarthritis, unspecified site; J44.9 Chronic obstructive pulmonary disease, unspecified; I48.91 Unspecified atrial fibrillation; Z79.01 Long term (current) use of anticoagulants; I10 Essential (primary) hypertension
CPT/HCPCS: 36415; 71046; 80053; 85025; 93005; 96360; 99284; J7030